=== PATIENT | male | born 1975 | race American Indian/Alaskan Native ===

== ENCOUNTER 2018-12-30 14:58 | Inpatient (IN) | payer OTHER, SELFPAY ==
[2018-12-30] MEDS ORDERED: SODIUM CHLORIDE 0.9% 1000 ML 2,000 ML ONE (15:05)
[2018-12-30] MEDS ORDERED: SODIUM CHLORIDE 0.9% 1000 ML 1,000 ML IV ONE ×3 (15:09→18:31)
[2018-12-30] MEDS ORDERED: ROCURONIUM 50 MG/5 ML INJ IV ONE (15:10)
[2018-12-30] MEDS ORDERED: ETOMIDATE 20 MG/10 ML INJ IV ONE (15:10)
--- NOTE | 2018-12-30 15:13 | Emergency Department Report ---
History of Present Illness - General Stated Complaint: OD/UNRESPONSIVE Time Seen by Provider: 12/30/18 15:00 Source: EMS Mode of arrival: Stretcher Limitations: Altered Mental Status, Physical Limitation - History of Present Illness Initial Comments: Patient is a 41-year-old male that presents emergency room for overdose. EMS states the patient has been unresponsive since the mother. EMS states that the patient had a seizure just prior to arrival he was given 2 of Versed. Prior to the seizure patient was given Narcan with no response. MD Complaint: intentional overdose, accidental overdose -: Sudden Intent: other Treatments Prior to Arrival: oxygen, narcan - Related Data Previous Rx's Medication Instructions Recorded Last Taken Type levETIRAcetam [Keppra TAB] 750 mg PO BID #60 tablet 01/03/19 Unknown Rx Allergies Allergy/AdvReac Type Severity Reaction Status Date / Time No Known Allergies Allergy Unverified 12/30/18 17:15 ED Review of Systems ROS: Stated complaint: OD/UNRESPONSIVE Other details as noted in HPI Comment: Unobtainable due to pts medical conditions ED Past Medical Hx - Past Medical History Previous Medical History?: No - Surgical History Past Surgical History?: No - Family History Family history: no significant - Social History Smoking Status: Unknown if ever smoked Substance Use Type: Cocaine - Medications Home Medications: Home Medications Medication Instructions Recorded Confirmed Last Taken Type levETIRAcetam [Keppra TAB] 750 mg PO BID #60 tablet 01/03/19 Unknown Rx ED Physical Exam - General Limitations: Altered Mental Status, Physical Limitation General appearance: obtunded - Head Head exam: Present: atraumatic, normocephalic - Eye Eye exam: Present: normal appearance, PERRL Pupils: Present: normal accommodation - ENT ENT exam: Present: mucous membranes moist - Neck Neck exam: Present: normal inspection - Respiratory Respiratory exam: Present: normal lung sounds bilaterally. Absent: respiratory distress, wheezes, rales - Cardiovascular Cardiovascular Exam: Present: regular rate, normal rhythm. Absent: systolic murmur, diastolic murmur, rubs, gallop - GI/Abdominal GI/Abdominal exam: Present: soft, normal bowel sounds - Rectal Rectal exam: Present: deferred - Extremities Exam Extremities exam: Present: normal inspection - Back Exam Back exam: Present: normal inspection - Neurological Exam Neurological exam: Present: altered - Expanded Neurological Exam Expanded Best Eye Response (Daniel): (1) no response Best Motor Response (Daniel): (1) no motor response Best Verbal Response (Daniel): (2) incomprehsible sounds [place] Total: 4 - Skin Skin exam: Present: warm, dry, intact, normal color. Absent: rash ED Course Vital Signs 12/30/18 12/30/18 12/30/18 15:11 15:16 15:28 Temperature Pulse Rate 93 H 92 H Respiratory 15 11 L Rate Blood Pressure 95/53 95/53 Blood Pressure [Right] O2 Sat by Pulse 95 94 97 Oximetry 12/30/18 12/30/18 12/30/18 15:30 15:46 16:00 Temperature 96.3 F L Pulse Rate 93 H 105 H 108 H Respiratory 18 18 17 Rate Blood Pressure 95/53 95/53 138/81 Blood Pressure 122/71 [Right] O2 Sat by Pulse 96 98 98 Oximetry 12/30/18 12/30/18 12/30/18 16:16 16:30 16:45 Temperature Pulse Rate 106 H 99 H 99 H Respiratory 20 21 21 Rate Blood Pressure 138/81 138/81 149/79 Blood Pressure [Right] O2 Sat by Pulse 98 98 90 Oximetry 12/30/18 12/30/18 12/30/18 17:00 17:15 17:30 Temperature Pulse Rate 94 H 93 H 89 Respiratory 31 H 20 27 H Rate Blood Pressure 128/81 128/71 133/68 Blood Pressure [Right] O2 Sat by Pulse 87 80 L 87 Oximetry 12/30/18 12/30/18 12/30/18 17:46 18:00 18:03 Temperature Pulse Rate 88 82 88 Respiratory 24 26 H Rate Blood Pressure 110/61 103/58 103/58 Blood Pressure [Right] O2 Sat by Pulse 97 98 Oximetry 12/30/18 12/30/18 12/30/18 18:16 18:30 18:45 Temperature Pulse Rate 91 H 92 H 84 Respiratory 36 H 20 23 Rate Blood Pressure 124/82 121/75 72/35 Blood Pressure [Right] O2 Sat by Pulse Oximetry 12/30/18 12/30/18 12/30/18 19:12 19:16 19:30 Temperature Pulse Rate 77 77 89 Respiratory 29 H 34 H Rate Blood Pressure 103/58 103/58 103/58 Blood Pressure [Right] O2 Sat by Pulse 94 88 92 Oximetry 12/30/18 12/30/18 12/30/18 19:45 20:00 20:15 Temperature Pulse Rate 77 84 76 Respiratory 24 28 H 22 Rate Blood Pressure 95/52 72/35 96/57 Blood Pressure [Right] O2 Sat by Pulse 96 98 96 Oximetry 12/30/18 12/30/18 12/30/18 20:30 20:46 21:30 Temperature Pulse Rate 78 89 96 H Respiratory 19 27 H 25 H Rate Blood Pressure 99/49 99/49 99/53 Blood Pressure [Right] O2 Sat by Pulse 99 98 98 Oximetry 12/30/18 12/30/18 12/30/18 21:45 22:00 22:15 Temperature Pulse Rate 87 80 86 Respiratory 31 H 29 H 24 Rate Blood Pressure 105/50 92/53 92/62 Blood Pressure [Right] O2 Sat by Pulse 96 96 95 Oximetry 12/30/18 12/30/18 12/30/18 22:30 22:45 23:00 Temperature Pulse Rate 77 82 86 Respiratory 24 24 26 H Rate Blood Pressure 92/62 95/53 97/61 Blood Pressure [Right] O2 Sat by Pulse 96 95 97 Oximetry 12/30/18 12/30/18 12/30/18 23:14 23:15 23:30 Temperature Pulse Rate 83 84 83 Respiratory 26 H 22 20 Rate Blood Pressure 97/61 109/63 92/57 Blood Pressure [Right] O2 Sat by Pulse 98 96 98 Oximetry 12/30/18 12/31/18 12/31/18 23:45 00:00 00:31 Temperature Pulse Rate 90 83 90 Respiratory 19 21 25 H Rate Blood Pressure 105/64 96/52 98/55 Blood Pressure [Right] O2 Sat by Pulse 96 96 97 Oximetry 12/31/18 12/31/18 12/31/18 00:45 01:00 01:01 Temperature Pulse Rate 87 89 89 Respiratory 23 24 Rate Blood Pressure 101/61 108/77 108/61 Blood Pressure [Right] O2 Sat by Pulse 95 95 Oximetry 12/31/18 12/31/18 12/31/18 01:15 01:30 01:45 Temperature Pulse Rate 87 81 78 Respiratory 23 22 21 Rate Blood Pressure 95/53 95/52 92/53 Blood Pressure [Right] O2 Sat by Pulse 94 92 Oximetry 12/31/18 12/31/18 12/31/18 02:00 02:15 02:30 Temperature Pulse Rate 78 79 77 Respiratory 19 19 20 Rate Blood Pressure 98/52 99/55 97/54 Blood Pressure [Right] O2 Sat by Pulse 93 93 94 Oximetry 12/31/18 12/31/18 12/31/18 02:45 03:00 03:15 Temperature Pulse Rate 73 76 74 Respiratory 21 21 16 Rate Blood Pressure 94/50 98/53 100/56 Blood Pressure [Right] O2 Sat by Pulse 95 Oximetry 12/31/18 12/31/18 12/31/18 03:30 03:45 04:00 Temperature Pulse Rate 77 74 75 Respiratory 19 20 18 Rate Blood Pressure 100/53 95/52 96/53 Blood Pressure [Right] O2 Sat by Pulse 95 Oximetry 12/31/18 12/31/18 12/31/18 04:15 04:21 04:30 Temperature Pulse Rate 73 73 70 Respiratory 18 21 Rate Blood Pressure 92/52 92/52 97/61 Blood Pressure [Right] O2 Sat by Pulse 96 98 Oximetry 12/31/18 12/31/18 12/31/18 04:45 05:00 05:15 Temperature Pulse Rate 71 76 78 Respiratory 19 20 14 Rate Blood Pressure 94/52 96/52 95/53 Blood Pressure [Right] O2 Sat by Pulse 97 97 Oximetry 12/31/18 12/31/18 12/31/18 05:30 05:45 06:00 Temperature Pulse Rate 68 73 74 Respiratory 17 19 20 Rate Blood Pressure 92/54 94/49 90/45 Blood Pressure [Right] O2 Sat by Pulse 96 Oximetry 12/31/18 12/31/18 12/31/18 06:15 06:45 07:00 Temperature Pulse Rate 71 72 70 Respiratory 19 21 17 Rate Blood Pressure 99/46 92/51 94/51 Blood Pressure [Right] O2 Sat by Pulse 95 96 Oximetry 12/31/18 12/31/18 12/31/18 07:10 07:15 07:28 Temperature 98.4 F Pulse Rate 72 69 73 Respiratory 20 16 Rate Blood Pressure 94/52 94/52 Blood Pressure 94/55 [Right] O2 Sat by Pulse 97 97 100 Oximetry 12/31/18 12/31/18 12/31/18 07:30 07:45 08:00 Temperature Pulse Rate 75 73 73 Respiratory 15 20 17 Rate Blood Pressure 105/62 96/53 94/52 Blood Pressure [Right] O2 Sat by Pulse 100 98 Oximetry 12/31/18 12/31/18 12/31/18 08:15 08:30 08:45 Temperature Pulse Rate 74 71 69 Respiratory 20 20 20 Rate Blood Pressure 94/55 90/49 92/48 Blood Pressure [Right] O2 Sat by Pulse 97 Oximetry 12/31/18 10:00 Temperature Pulse Rate 87 Respiratory 26 H Rate Blood Pressure Blood Pressure [Right] O2 Sat by Pulse 97 Oximetry - Reevaluation(s) Reevaluation #1: initial evaluation done. Patient's GCS is less than 8. we will intubate patient to protect his airway. See procedure note. 12/30/18 15:13 Reevaluation #2: Patient resting comfortably in bed and on ventilator. Nurse to place Renee 12/30/18 16:09 Reevaluation #3: Mother at bedside. And the mother states that the patient has multiple overdoses and has a long history of drug abuse. 12/30/18 17:19 - Consultations Consultation #1: Hospitalist consult for admission. Hospitalist admit patient. 12/30/18 18:39 - Intubation Time Out Performed: Yes Sedative: Etomidate Paralytic: Rocuronium Laryngoscope: fiberoptic video scope Size: 4 Assist Device Used: fiberoptic device ET Tube Size: 7.5 Tube Secured Depth (cm): 22 Tube Secured Location: teeth Tube Placement Confirmation: visualized tube passing t, equal breath sounds bilat, no breath sounds over epi, confirmation by capnometr Patient Tolerated Procedure: well, no complications Intubation Complications: none ED Medical Decision Making - Lab Data Result diagrams: 01/03/19 06:28 01/03/19 06:28 - EKG Data -: EKG Interpreted by Me EKG shows normal: sinus rhythm, axis, intervals, QRS complexes, ST-T waves Rate: normal - Radiology Data Radiology results: image reviewed interpreted by me: ET tube in good placement. No acute findings on chest x-ray.. CHEST 1 VIEW 12/30/2018 3:26 PM INDICATION / CLINICAL INFORMATION: od. ams. intubation. COMPARISON: None available. FINDINGS: SUPPORT DEVICES: ET tube has tip 8 cm above juan jose. HEART / MEDIASTINUM: No significant abnormality. LUNGS / PLEURA: Elevation of left hemidiaphragm with volume loss in left hemithorax. No focal infiltrate or pleural effusion. No pneumothorax. ADDITIONAL FINDINGS: No significant additional findings. IMPRESSION: 1. Volume loss of left lung with elevated left hemidiaphragm. No acute disease. CT BRAIN: 12/30/2018 INDICATION / CLINICAL INFORMATION: ams. COMPARISON: None available. FINDINGS: BRAIN/INTRACRANIAL STRUCTURES: Unenhanced CT images of the brain demonstrate no evidence of intracranial abnormality. Ventricles and sulci are normal in size and shape. There is no evidence of ischemic injury, hemorrhage, or mass. There are no abnormal extra-axial fluid collections. EXTRACRANIAL STRUCTURES: Unremarkable. Although only seen on the lateral quality engineering manager view of the skull, it appears that the nasogastric tube may be coiled in the nasal cavity and possibly in the posterior oropharynx. IMPRESSION: Negative unenhanced MRI of the brain. Possible coiling of nasogastric tube in nasopharynx and nasal cavity. - Medical Decision Making Patient is a 41-year-old male that presents emergency room with altered mental status and unresponsiveness. Patient was immediately intubated to protect his airway due to his lack of responsiveness. Patient found to have a metabolic acidosis. Patient has a long history of drug abuse and overdose. Patient's UDS is positive. Patient's head CT negative. Patient's labs essentially unremarkable except for his acidosis. - Differential Diagnosis unresponsiveness. Overdose. AMS. Critical Care Time: Yes Critical care time in (mins) excluding proc time.: 65 Critical care attestation.: If time is entered above; I have spent that time in minutes in the direct care of this critically ill patient, excluding procedure time. Critical Care Time: 65 minutes ED Disposition Clinical Impression: Seizure, Unresponsive episode, Metabolic acidosis Overdose Qualifiers: Encounter type: initial encounter Injury intent: undetermined intent Qualified Code(s): T50.904A - Poisoning by unspecified drugs, medicaments and biological substances, undetermined, initial encounter Altered mental state Qualifiers: Altered mental status type: unspecified Qualified Code(s): R41.82 - Altered mental status, unspecified Disposition: DC-09 OP ADMIT IP TO THIS HOSP Is pt being admited?: Yes Does the pt Need Aspirin: No Condition: Critical Time of Disposition: 18:42
[2018-12-30 15:39] LABS: Basophils # (Auto) 0.1 K/mm3 (0.0-0.1); Basophils % (Auto) 0.5 % (0.0-1.8); Eosinophils % (Auto) 0.1 % (0.0-4.3); Hematocrit 45.1 % (35.5-45.6); Hemoglobin 15.3 gm/dl (11.8-15.2); Lymphocytes # (Auto) 1.1 K/mm3 (1.2-5.4); Mean Corpuscular HGB Conc 34 % (32-34); Mean Corpuscular Volume 89 fl (84-94); Monocytes % (Auto) 8.1 % (0.0-7.3); Platelet Count 215 K/mm3 (140-440); Red Blood Count 5.07 M/mm3 (3.65-5.03); Red Cell Distribution Width 13.1 % (13.2-15.2)
--- NOTE | 2018-12-30 15:56 | XRay Report ---
CHEST 1 VIEW 12/30/2018 3:26 PM INDICATION / CLINICAL INFORMATION: od. ams. intubation. COMPARISON: None available. FINDINGS: SUPPORT DEVICES: ET tube has tip 8 cm above juan jose. HEART / MEDIASTINUM: No significant abnormality. LUNGS / PLEURA: Elevation of left hemidiaphragm with volume loss in left hemithorax. No focal infiltr ate or pleural effusion. No pneumothorax. ADDITIONAL FINDINGS: No significant additional findings. IMPRESSION: 1. Volume loss of left lung with elevated left hemidiaphragm. No acute disease. Signer Name: Paul Trent MD Signed: 12/30/2018 3:51 PM Workstation Name: [id number]
[2018-12-30] MEDS ORDERED: LORazepam 100 MG in SODIUM CHLORIDE 0.9% 50 ML, EMPTY BAG 0 ML IV SCH (16:00)
[2018-12-30] MEDS ORDERED: CEFEPIME/NS 2 GM/100 ML 2 GM/100 ML BAG IV ONE (16:44)
[2018-12-30 16:45] LABS: Bacteria,Urine 2+ /HPF (Negative); Bilirubin,Urine NEG (Negative); Blood,Urine LG (Negative); Color,Urine Yellow (Yellow); Hyaline Casts,Urine 3 /LPF; Mucus,Urine FEW /HPF; Urobilinogen,Urine < 2.0 mg/dL (<2.0)
[2018-12-30 16:52] LABS: Amphetamine Screen,Urine PRESUMPTIVE NEGATIVE; Cannabinoid Screen,Urine PRESUMPTIVE NEGATIVE; Cocaine Screen,Urine PRESUMPTIVE NEGATIVE; Methadone Screen,Urine PRESUMPTIVE NEGATIVE; Opiate Screen,Urine PRESUMPTIVE NEGATIVE
[2018-12-30 17:11] LABS: Benzodiazepines Screen,Urine PRESUMPTIVE POSITIVE
[2018-12-30 17:44] LABS: Alanine Aminotransferase 92 units/L (7-56); Albumin 4.3 g/dL (3.9-5); BUN/Creatinine Ratio 12; Blood Urea Nitrogen 16 mg/dL (9-20); Calcium 8.2 mg/dL (8.4-10.2); Hemolysis Index 48
[2018-12-30] MEDS ORDERED: levETIRAcetam 1000 MG/NS 0.75% 1,000 MG/100 ML BAG IV ONE (18:30)
[2018-12-30] MEDS ORDERED: PROPOFOL 200 MG/20 ML VIAL IV ONE ×2 (18:33→18:37)
[2018-12-30] MEDS: PROPOFOL 1,000 MG/100 ML BOTTLE IV SCH ×2 (18:42→23:30)
--- NOTE | 2018-12-30 19:47 | Cat Scan Report ---
CT BRAIN: 12/30/2018 INDICATION / CLINICAL INFORMATION: ams. COMPARISON: None available. FINDINGS: BRAIN/INTRACRANIAL STRUCTURES: Unenhanced CT images of the brain demonstrate no evidence of intracran ial abnormality. Ventricles and sulci are normal in size and shape. There is no evidence of ischemic injury, hemorrhage, or mass. There are no abnormal extra-axial fluid collections. EXTRACRANIAL STRUCTURES: Unremarkable. Although only seen on the lateral harvest crew supervisor view of the skull, it appears that the nasogastric tube may be coiled in the nasal cavity and possibly in the posterior oropharynx. IMPRESSION: Negative unenhanced MRI of the brain. Possible coiling of nasogastric tube in nasopharynx and nasal cavity. All CT scans at this location are performed using dose reduction to ALARA by means of automated expos ure control. Signer Name: Michele Daley MD Signed: 12/30/2018 7:42 PM Workstation Name: [id number]
--- NOTE | 2018-12-30 19:53 | History and Physical Report ---
History of Present Illness Date of examination: 12/30/18 Date of admission: 12/30/2018 Chief complaint: Decreased responsiveness-unknown time History of present illness: 41-year-old male with no significant past medical history except for PCP dependence and benzo dependence was found unresponsive by his mother in the morning. Mother cannot tell how long he has passed out. Last well-known time was last night. Mother called EMS and [facility] patient had a tonic-clonic seizure just before arrival in the emergency room and was given 2 milligrams of Versed. Patient's UDS positive for PCP and benzos. No fever. Patient was intubated in the emergency room. Head CT was negative Past Medical History Previous Medical History?: No Surgical History Past Surgical History?: No Family History Family history: no significant PCP and benzo dependence Social History PCP and benzo dependence Review of Systems ROS: Stated complaint: OD/UNRESPONSIVE Other details as noted in HPI Comment: Unobtainable due to pts medical conditions Past History Past Medical History: No medical history Past Surgical History: No surgical history Social history: lives with family, other (PCP abuse and benzo abuse) Family history: no significant family history Medications and Allergies Allergies Allergy/AdvReac Type Severity Reaction Status Date / Time No Known Allergies Allergy Unverified 12/30/18 17:15 Active Meds: Active Medications Lorazepam 100 mg/ Sodium Chloride/ Miscellaneous Information 100 mls @ 1 mls/hr IV TITR ERIN; Protocol Last Titration: 12/30/18 17:52 Dose: 5 mg/hr, 5 mls/hr Documented by: Propofol (Diprivan 10 Mg/Ml) 1,000 mg in 100 mls @ 2.245 mls/hr IV TITR ERIN; Protocol Last Titration: 12/30/18 19:34 Dose: 10 mcg/kg/min, 4.491 mls/hr Documented by: Exam - Constitutional Vitals: Temp Pulse Resp BP Pulse Ox 96.3 F L 77 29 H 103/58 88 12/30/18 15:30 12/30/18 19:16 12/30/18 19:16 12/30/18 19:16 12/30/18 19:16 General appearance: Present: no acute distress, well-nourished - EENT Eyes: Present: PERRL ENT: hearing intact, clear oral mucosa - Neck Neck: Present: supple, normal ROM - Respiratory Respiratory effort: normal Respiratory: bilateral: CTA - Cardiovascular Heart rate: 91 Rhythm: regular Heart Sounds: Present: S1 & S2. Absent: rub, click - Extremities Extremities: no ischemia, pulses intact, pulses symmetrical, No edema Peripheral Pulses: within normal limits - Abdominal General gastrointestinal: Present: soft, non-tender, non-distended, normal bowel sounds Male genitourinary: Present: normal - Rectal Rectal Exam: deferred - Integumentary Integumentary: Present: clear, warm, dry - Musculoskeletal Musculoskeletal: generalized weakness - Psychiatric Psychiatric: other - Neurologic Neurologic: other (unresponsive, intubated on full ventilator support) - Allied Health Allied health notes reviewed: nursing, case management Results - Labs CBC & Chem 7: 12/30/18 15:30 12/30/18 17:00 Labs: Laboratory Last Values WBC 12.4 K/mm3 (4.5-11.0) H 12/30/18 15:30 RBC 5.07 M/mm3 (3.65-5.03) H 12/30/18 15:30 Hgb 15.3 gm/dl (11.8-15.2) H 12/30/18 15:30 Hct 45.1 % (35.5-45.6) 12/30/18 15:30 MCV 89 fl (84-94) 12/30/18 15:30 MCH 30 pg (28-32) 12/30/18 15:30 MCHC 34 % (32-34) 12/30/18 15:30 RDW 13.1 % (13.2-15.2) L 12/30/18 15:30 Plt Count 215 K/mm3 (140-440) 12/30/18 15:30 Lymph % (Auto) 9.0 % (13.4-35.0) L 12/30/18 15:30 [place] % (Auto) 8.1 % (0.0-7.3) H 12/30/18 15:30 Eos % (Auto) 0.1 % (0.0-4.3) 12/30/18 15:30 Baso % (Auto) 0.5 % (0.0-1.8) 12/30/18 15:30 Lymph # 1.1 K/mm3 (1.2-5.4) L 12/30/18 15:30 [place] # 1.0 K/mm3 (0.0-0.8) H 12/30/18 15:30 Eos # 0.0 K/mm3 (0.0-0.4) 12/30/18 15:30 Baso # 0.1 K/mm3 (0.0-0.1) 12/30/18 15:30 Seg Neutrophils % 82.3 % (40.0-70.0) H 12/30/18 15:30 Seg Neutrophils # 10.2 K/mm3 (1.8-7.7) H 12/30/18 15:30 POC ABG pH 7.265 (7.35-7.45) L 12/30/18 18:03 POC ABG pCO2 45.0 (35-45) 12/30/18 18:03 POC ABG pO2 212 (80-105) H 12/30/18 18:03 POC ABG HCO3 20.4 (22-26 mml/L) 12/30/18 18:03 POC ABG Total CO2 22 (23-27mmol/L) 12/30/18 18:03 POC ABG O2 Sat 100 12/30/18 18:03 POC ABG Base Excess -7 ((-2) - (+3)mmol/L) 12/30/18 18:03 FiO2 100 % 12/30/18 18:03 Sodium 144 mmol/L (137-145) 12/30/18 17:00 Potassium 4.0 mmol/L (3.6-5.0) 12/30/18 17:00 Chloride 110.0 mmol/L (98-107) H 12/30/18 17:00 Carbon Dioxide 17 mmol/L (22-30) L 12/30/18 17:00 Anion Gap 21 mmol/L 12/30/18 17:00 BUN 16 mg/dL (9-20) 12/30/18 17:00 Creatinine 1.3 mg/dL (0.8-1.5) 12/30/18 17:00 Estimated GFR > 60 ml/min 12/30/18 17:00 BUN/Creatinine Ratio 12 % 12/30/18 17:00 Glucose 111 mg/dL (75-100) H 12/30/18 17:00 Lactic Acid 0.70 mmol/L (0.7-2.0) 12/30/18 17:00 Calcium 8.2 mg/dL (8.4-10.2) L 12/30/18 17:00 Total Bilirubin 0.70 mg/dL (0.1-1.2) 12/30/18 17:00 AST 367 units/L (5-40) H 12/30/18 17:00 ALT 92 units/L (7-56) H 12/30/18 17:00 Alkaline Phosphatase 55 units/L (35-129) 12/30/18 17:00 Total Protein 6.7 g/dL (6.3-8.2) 12/30/18 17:00 Albumin 4.3 g/dL (3.9-5) 12/30/18 17:00 Albumin/Globulin Ratio 1.8 % 12/30/18 17:00 Urine Color Yellow (Yellow) 12/30/18 16:30 Urine Turbidity Slightly-cloudy (Clear) 12/30/18 16:30 Urine pH 5.0 (5.0-7.0) 12/30/18 16:30 Ur Specific [place] 1.017 (1.003-1.030) 12/30/18 16:30 Urine Protein 100 mg/dl mg/dL (Negative) 12/30/18 16:30 Urine Glucose (UA) Neg mg/dL (Negative) 12/30/18 16:30 Urine Ketones Tr mg/dL (Negative) 12/30/18 16:30 Urine Blood Lg (Negative) 12/30/18 16:30 Urine Nitrite Neg (Negative) 12/30/18 16:30 Urine Bilirubin Neg (Negative) 12/30/18 16:30 Urine Urobilinogen < 2.0 mg/dL (<2.0) 12/30/18 16:30 Ur Leukocyte Esterase Neg (Negative) 12/30/18 16:30 Urine WBC (Auto) 4.0 /HPF (0.0-6.0) 12/30/18 16:30 Urine RBC (Auto) 1.0 /HPF (0.0-6.0) 12/30/18 16:30 U Epithel Cells (Auto) 1.0 /HPF (0-13.0) 12/30/18 16:30 Urine Bacteria (Auto) 2+ /HPF (Negative) 12/30/18 16:30 Hyaline Casts 3 /LPF 12/30/18 16:30 Urine Mucus Few /HPF 12/30/18 16:30 Urine Opiates Screen Presumptive negative 12/30/18 16:30 Urine Methadone Screen Presumptive negative 12/30/18 16:30 Ur Barbiturates Screen Presumptive negative 12/30/18 16:30 Ur Phencyclidine Scrn Presumptive positive 12/30/18 16:30 Ur Amphetamines Screen Presumptive negative 12/30/18 16:30 U Benzodiazepines Scrn Presumptive positive 12/30/18 16:30 Urine Cocaine Screen Presumptive negative 12/30/18 16:30 U Marijuana (THC) Screen Presumptive negative 12/30/18 16:30 Drugs of Abuse Note Disclamer 12/30/18 16:30 Plasma/Serum Alcohol < 0.01 % (0-0.07) 12/30/18 18:34 Short CBC 12/30/18 Range/Units 15:30 WBC 12.4 H (4.5-11.0) K/mm3 Hgb 15.3 H (11.8-15.2) gm/dl Hct 45.1 (35.5-45.6) % Plt Count 215 (140-440) K/mm3 BMP 12/30/18 17:00 Sodium 144 Potassium 4.0 Chloride 110.0 H Carbon Dioxide 17 L BUN 16 Creatinine 1.3 Glucose 111 H Calcium 8.2 L Liver Function 12/30/18 Range/Units 17:00 Total Bilirubin 0.70 (0.1-1.2) mg/dL AST 367 H (5-40) units/L ALT 92 H (7-56) units/L Alkaline Phosphatase 55 (35-129) units/L Albumin 4.3 (3.9-5) g/dL Urine 12/30/18 Range/Units 16:30 Urine Color Yellow (Yellow) Urine pH 5.0 (5.0-7.0) Ur Specific [place] 1.017 (1.003-1.030) Urine Protein 100 mg/dl (Negative) mg/dL Urine Glucose (UA) Neg (Negative) mg/dL - Imaging and Cardiology EKG: report reviewed Chest x-ray: report reviewed CT Scan - head: report reviewed (no acute findings) Imaging and Cardiology: Chest x-ray IMPRESSION: 1. Volume loss of left lung with elevated left hemidiaphragm. No acute disease. Assessment and Plan Assessment and plan: Critical care time--40 minutes Advance Directives: Yes (full code) VTE prophylaxis?: Chemical Plan of care discussed with patient/family: Yes - Patient Problems (1) Acute encephalopathy Status: Acute Plan to address problem: Secondary to PCP and benzos Pupils reactive Ventilatory support IV fluids CIWA protocol for agitation and withdrawal symptoms (2) PCP dependence Status: Acute Plan to address problem: Supportive care CIWA protocol IV fluids (3) Metabolic acidosis Status: Acute Plan to address problem: IV normal saline for now (4) Seizure Status: Acute Plan to address problem: New-onset seizures Patient initiated on IV Keppra Patient may need oral Keppra for discharge Patient to be bridged to oral Keppra once extubated (5) Transaminitis Status: Acute Plan to address problem: Acute hepatitis profile ordered Trend liver function tests IV fluids (6) DVT prophylaxis Status: Acute Plan to address problem: On Lovenox and GI prophylaxis
[2018-12-30] MEDS ORDERED: SODIUM BICARBONATE 325 MG TAB FEEDTUBE PRN (20:05)
[2018-12-30] MEDS ORDERED: ONDANSETRON 4 MG/2 ML INJ IV PRN (20:05)
[2018-12-30] MEDS ORDERED: SIMPLE SYRUP 15 ML FEEDTUBE PRN ×2 (20:05)
[2018-12-30] MEDS ORDERED: METOCLOPRAMIDE 10 MG/2 ML INJ IV PRN (20:05)
[2018-12-30] MEDS ORDERED: DEXTROSE 50% IN WATER (25GM) 50 ML SYRINGE IV PRN (20:05)
[2018-12-30] MEDS ORDERED: LIPASE 10,500/PROTEASE 25,000/AMYLASE 43,750 (UNITS) DR CAP FEEDTUBE PRN (20:05)
[2018-12-30] MEDS ORDERED: HYDROmorphone 1 MG/1 ML INJ IV PRN (20:05)
[2018-12-30] MEDS ORDERED: ALBUTEROL 2.5 MG/3 ML NEBU IH PRN (20:11)
[2018-12-30] MEDS ORDERED: LORazepam 2 MG/ML VIAL IV PRN ×2 (20:38)
[2018-12-30 21:15] LABS: Calcium 7.7 mg/dL (8.4-10.2)
[2018-12-30 21:20] LABS: Hepatitis B Surface Antigen Non-Reactive (Negative); Hepatitis C Virus Antibody Non-Reactive (NonReactive)
[2018-12-30] MEDS ORDERED: PROPOFOL 1,000 MG/100 ML BOTTLE IV ONE (23:26)
[2018-12-30] MEDS ORDERED: ENOXAPARIN 40 MG/0.4 ML INJ SUB-Q ONE (23:35)
[2018-12-30] MEDS ORDERED: cefTRIAXone/NS 2 GM/100 ML 2 GM/100 ML BAG IV ONE (23:35)
[2018-12-30] MEDS ORDERED: FAMOTIDINE 20 MG/2 ML INJ IV ONE (23:35)
[2018-12-30] MEDS: FAMOTIDINE 20 MG/2 ML INJ IV SCH (23:39)
[2018-12-30] MEDS: ENOXAPARIN 40 MG/0.4 ML INJ SUB-Q SCH (23:40)
[2018-12-30] MEDS: cefTRIAXone/NS 2 GM/100 ML 2 GM/100 ML BAG IV SCH (23:40)
[2018-12-31] MEDS ORDERED: fentaNYL 100 MCG/2 ML INJ IV PRN (00:38)
[2018-12-31] MEDS ORDERED: MINERAL OIL/PETROLATUM, WHITE OPHTH OINT 3.5 GM OU PRN (00:38)
[2018-12-31] MEDS ORDERED: LIP THERAPY VASELINE TP PRN (00:38)
[2018-12-31] MEDS ORDERED: fentaNYL DRIP Premix 2,000 MCG/100 ML BAG IV SCH (01:00)
--- NOTE | 2018-12-31 05:53 | XRay Report ---
CHEST 1 VIEW INDICATION / CLINICAL INFORMATION: Verify OG tube placement. COMPARISON: 12/30/2018 FINDINGS: SUPPORT DEVICES: ET tube is present and stable in position. There has been interval placement of NG t ube. The tip is in the mid to distal portion of the stomach.. HEART / MEDIASTINUM: No significant abnormality. LUNGS / PLEURA: There is prominent left lower lobe pleural-parenchymal disease. Right lung is well ex panded and clear. No interstitial pulmonary edema. No pneumothorax. ADDITIONAL FINDINGS: No significant additional findings. IMPRESSION: 1. ET tube and NG tube appear to be in satisfactory position. 2. Prominent left lower lobe pleural-parenchymal disease. Signer Name: Yelitza Rodriguez MD Signed: 12/31/2018 5:49 AM Workstation Name: [email or web address]
[2018-12-31 06:24] LABS: ABG Base Excess -8.3 mmol/L (-2.0-3.0); ABG HCO3 17.4 mmol/L (20.0-26.0); ABG Methemoglobin 0.4 % (0.0-1.5); ABG Oxygen Saturation 96.8 % (95.0-99.0); ABG PCO2 36.5 mm Hg; ABG PH 7.296 pH Units (7.350-7.450); ABG PO2 89.8 mm Hg (80.0-90.0)
[2018-12-31] MEDS ORDERED: PROPOFOL 1,000 MG/100 ML BOTTLE IV ONE (07:18)
--- NOTE | 2018-12-31 07:48 | Progress Note ---
Assessment and Plan Assessment and plan: Patient is a 41 yo man without known chronic medical problems except for PCP and Benzo dependence who presents to [facility] with AMS. He was found unresponsive by Mother. Mother cannot tell how long he was passed out. Last well-known time was last night. Mother called EMS and per EMS patient had a tonic-clonic seizure just before arrival in the emergency room and was given 2 milligrams of Versed. Patient's UDS positive for PCP and benzos. Patient was intubated in the emergency room. * pCXR Impression: Volume loss of left lung with elevated left hemidiaphragm, no acute disease, ET tube has tip 8 cm above juan jose * CT head without contrast Impression: Negative (1) Acute toxic metabolic encephalopathy Status: Acute Plan to address problem: Secondary to PCP and benzos Pupils reactive Ventilatory support IV fluids CIWA protocol for agitation and withdrawal symptoms (2) PCP dependence Status: Acute Plan to address problem: Supportive care CIWA protocol IV fluids (3) Metabolic acidosis Status: Acute Plan to address problem: IV normal saline for now (4) Seizure Status: Acute Plan to address problem: New-onset seizures Patient initiated on IV Keppra Patient may need oral Keppra for discharge Patient to be bridged to oral Keppra once extubated (5) Transaminitis Status: Acute Plan to address problem: Acute hepatitis profile ordered Trend liver function tests IV fluids (6) DVT prophylaxis Status: Acute Plan to address problem: On Lovenox and GI prophylaxis History Interval history: Patient was seen and examined. Follow-up on current diagnosis of Respiratory failure. No overnight events reported to me. Patient intubated. Imaging, nursing note, chart, labs and old chart reviewed. I spoke with mother and his Uncle Jostin at bedside. Hospitalist Physical - Physical exam Narrative exam: Gen: WDWN, critically ill on life support/MV HEENT: NCAT, EOMI, Pupils pinpoint, OP Clear Neck: supple, no adenopathy, no thyromegaly, no JVD CVS/Heart: RRR, normal S1S2, pulses present bilaterally Chest/Lungs: CTA B, Symmetrical chest expansion, good air entry bilaterally GI/Abdomen: soft, NTND, good bowel sounds, no guarding or rebound /Bladder: no suprapubic tenderness, no CVA or paraspinal tenderness Extermity/Skin: no c/c/e, MSK: sedated Neuro: sedated Psych: sedated - Constitutional Vitals: Temp Pulse Resp BP Pulse Ox 96.3 F L 72 21 92/51 96 12/30/18 15:30 12/31/18 06:45 12/31/18 06:45 12/31/18 06:45 12/31/18 06:45 General appearance: Present: no acute distress, well-nourished Results - Labs CBC & Chem 7: 12/30/18 15:30 12/30/18 17:00 Labs: Laboratory Last Values WBC 12.4 K/mm3 (4.5-11.0) H 12/30/18 15:30 RBC 5.07 M/mm3 (3.65-5.03) H 12/30/18 15:30 Hgb 15.3 gm/dl (11.8-15.2) H 12/30/18 15:30 Hct 45.1 % (35.5-45.6) 12/30/18 15:30 MCV 89 fl (84-94) 12/30/18 15:30 MCH 30 pg (28-32) 12/30/18 15:30 MCHC 34 % (32-34) 12/30/18 15:30 RDW 13.1 % (13.2-15.2) L 12/30/18 15:30 Plt Count 215 K/mm3 (140-440) 12/30/18 15:30 Lymph % (Auto) 9.0 % (13.4-35.0) L 12/30/18 15:30 [place] % (Auto) 8.1 % (0.0-7.3) H 12/30/18 15:30 Eos % (Auto) 0.1 % (0.0-4.3) 12/30/18 15:30 Baso % (Auto) 0.5 % (0.0-1.8) 12/30/18 15:30 Lymph # 1.1 K/mm3 (1.2-5.4) L 12/30/18 15:30 [place] # 1.0 K/mm3 (0.0-0.8) H 12/30/18 15:30 Eos # 0.0 K/mm3 (0.0-0.4) 12/30/18 15:30 Baso # 0.1 K/mm3 (0.0-0.1) 12/30/18 15:30 Seg Neutrophils % 82.3 % (40.0-70.0) H 12/30/18 15:30 Seg Neutrophils # 10.2 K/mm3 (1.8-7.7) H 12/30/18 15:30 POC ABG pH 7.300 (7.35-7.45) L 12/30/18 22:12 ABG pH 7.296 pH Units (7.350-7.450) L 12/31/18 04:40 POC ABG pCO2 36.6 (35-45) 12/30/18 22:12 ABG pCO2 36.5 mm Hg 12/31/18 04:40 POC ABG pO2 126 (80-105) H 12/30/18 22:12 ABG pO2 89.8 mm Hg (80.0-90.0) 12/31/18 04:40 POC ABG HCO3 18.0 (22-26 mml/L) 12/30/18 22:12 ABG HCO3 17.4 mmol/L (20.0-26.0) L 12/31/18 04:40 POC ABG Total CO2 19 (23-27mmol/L) 12/30/18 22:12 POC ABG O2 Sat 98 12/30/18 22:12 ABG O2 Saturation 96.8 % (95.0-99.0) 12/31/18 04:40 ABG O2 Content 18.2 (0.0-44) 12/31/18 04:40 POC ABG Base Excess -8 ((-2) - (+3)mmol/L) 12/30/18 22:12 ABG Base Excess -8.3 mmol/L (-2.0-3.0) L 12/31/18 04:40 ABG Hemoglobin 13.6 gm/dl (14.0-18.0) L 12/31/18 04:40 ABG Carboxyhemoglobin 1.4 % (0.0-5.0) 12/31/18 04:40 ABG Methemoglobin 0.4 % (0.0-1.5) 12/31/18 04:40 Oxyhemoglobin 95.1 % (95.0-99.0) 12/31/18 04:40 FiO2 25 % 12/31/18 04:40 Sodium 144 mmol/L (137-145) 12/30/18 17:00 Potassium 4.0 mmol/L (3.6-5.0) 12/30/18 17:00 Chloride 110.0 mmol/L (98-107) H 12/30/18 17:00 Carbon Dioxide 17 mmol/L (22-30) L 12/30/18 17:00 Anion Gap 21 mmol/L 12/30/18 17:00 BUN 16 mg/dL (9-20) 12/30/18 17:00 Creatinine 1.3 mg/dL (0.8-1.5) 12/30/18 17:00 Estimated GFR > 60 ml/min 12/30/18 17:00 BUN/Creatinine Ratio 12 % 12/30/18 17:00 Glucose 111 mg/dL (75-100) H 12/30/18 17:00 Lactic Acid 0.70 mmol/L (0.7-2.0) 12/30/18 17:00 Calcium 7.7 mg/dL (8.4-10.2) L 12/30/18 20:44 Phosphorus 4.70 mg/dL (2.5-4.5) H 12/30/18 20:44 Magnesium 2.30 mg/dL (1.7-2.3) 12/30/18 20:44 Total Bilirubin 0.70 mg/dL (0.1-1.2) 12/30/18 17:00 AST 367 units/L (5-40) H 12/30/18 17:00 ALT 92 units/L (7-56) H 12/30/18 17:00 Alkaline Phosphatase 55 units/L (35-129) 12/30/18 17:00 Ammonia 55.0 umol/L (25-60) 12/30/18 20:44 Total Protein 6.7 g/dL (6.3-8.2) 12/30/18 17:00 Albumin 4.3 g/dL (3.9-5) 12/30/18 17:00 Albumin/Globulin Ratio 1.8 % 12/30/18 17:00 Urine Color Yellow (Yellow) 12/30/18 16:30 Urine Turbidity Slightly-cloudy (Clear) 12/30/18 16:30 Urine pH 5.0 (5.0-7.0) 12/30/18 16:30 Ur Specific [place] 1.017 (1.003-1.030) 12/30/18 16:30 Urine Protein 100 mg/dl mg/dL (Negative) 12/30/18 16:30 Urine Glucose (UA) Neg mg/dL (Negative) 12/30/18 16:30 Urine Ketones Tr mg/dL (Negative) 12/30/18 16:30 Urine Blood Lg (Negative) 12/30/18 16:30 Urine Nitrite Neg (Negative) 12/30/18 16:30 Urine Bilirubin Neg (Negative) 12/30/18 16:30 Urine Urobilinogen < 2.0 mg/dL (<2.0) 12/30/18 16:30 Ur Leukocyte Esterase Neg (Negative) 12/30/18 16:30 Urine WBC (Auto) 4.0 /HPF (0.0-6.0) 12/30/18 16:30 Urine RBC (Auto) 1.0 /HPF (0.0-6.0) 12/30/18 16:30 U Epithel Cells (Auto) 1.0 /HPF (0-13.0) 12/30/18 16:30 Urine Bacteria (Auto) 2+ /HPF (Negative) 12/30/18 16:30 Hyaline Casts 3 /LPF 12/30/18 16:30 Urine Mucus Few /HPF 12/30/18 16:30 Urine Opiates Screen Presumptive negative 12/30/18 16:30 Urine Methadone Screen Presumptive negative 12/30/18 16:30 Ur Barbiturates Screen Presumptive negative 12/30/18 16:30 Ur Phencyclidine Scrn Presumptive positive 12/30/18 16:30 Ur Amphetamines Screen Presumptive negative 12/30/18 16:30 U Benzodiazepines Scrn Presumptive positive 12/30/18 16:30 Urine Cocaine Screen Presumptive negative 12/30/18 16:30 U Marijuana (THC) Screen Presumptive negative 12/30/18 16:30 Drugs of Abuse Note Disclamer 12/30/18 16:30 Plasma/Serum Alcohol < 0.01 % (0-0.07) 12/30/18 18:34 Hepatitis A IgM Ab Non-reactive (NonReactive) 12/30/18 20:44 Hep Bs Antigen Non-reactive (Negative) 12/30/18 20:44 Hep B Core IgM Ab Non-reactive (NonReactive) 12/30/18 20:44 Hepatitis C Antibody Non-reactive (NonReactive) 12/30/18 20:44 Active Medications - Current Medications Current Medications: Generic Name Dose Route Start Last Admin Trade Name Freq PRN Reason Stop Dose Admin Albuterol 2.5 mg 12/30/18 20:11 Proventil IH Q4HRT PRN Shortness Of Breath Lipase/Protease/Amylase 1 each 12/30/18 20:05 Pancreaze 10,500 Unit FEEDTUBE PRN PRN For Clogged Feeding Tube Dextrose 50 ml 12/30/18 20:05 D50w (25gm) Syringe IV Q30MIN PRN Hypoglycemia Protocol Enoxaparin Sodium 40 mg 12/30/18 21:00 12/30/18 23:40 Enoxaparin SUB-Q 40 mg QDAY@2200 ERIN Administration Famotidine 20 mg 12/30/18 22:00 12/30/18 23:39 Pepcid IV 20 mg BID ERIN Administration Fentanyl 50 mcg 12/31/18 00:38 Sublimaze IV Q10MIN PRN ANALGESIA Hydromorphone HCl 0.5 mg 12/30/18 20:05 Dilaudid IV Q3H PRN Pain , Severe (7-10) Hydrophilic Ointment 1 applic 12/31/18 00:38 Vaseline Lip Therapy TP Q2HR PRN Dry Lips Lorazepam 100 mg/ Sodium 100 mls @ 1 mls/hr 12/30/18 16:00 12/30/18 17:52 Chloride/ Miscellaneous IV 5 mg/hr Information TITR ERIN 5 mls/hr Titration Protocol 1 MG/HR Propofol 1,000 mg in 100 mls @ 2.245 mls/hr 12/30/18 19:00 12/31/18 07:18 Diprivan 10 Mg/Ml IV 30 mcg/kg/min TITR ERIN 13.472 mls/hr Titration Protocol 5 MCG/KG/MIN Dextrose/Sodium Chloride 1,000 mls @ 100 mls/hr 12/30/18 21:00 D5ns IV DIRECT ERIN Levetiracetam 750 mg/ Dextrose 107.5 mls @ 400 mls/hr 12/31/18 06:00 IV Q12H ERIN Ceftriaxone Sodium 2 gm in 100 mls @ 200 mls/hr 12/30/18 21:00 12/30/18 23:40 Rocephin/Ns 2 Gm/100 Ml IV 200 mls/hr Q24HR@2200 ERIN Administration Protocol Fentanyl Citrate 2,000 mcg in 100 mls @ 3.742 mls/hr 12/31/18 01:00 12/31/18 00:55 Fentanyl Drip Premix IV 1 mcg/kg/hr TITR ERIN 3.742 mls/hr Administration Protocol 1 MCG/KG/HR Lorazepam 2 mg 12/30/18 20:38 Ativan IV Q1H PRN CIWA-Ar 8-15 Lorazepam 4 mg 12/30/18 20:38 Ativan IV Q15MIN PRN CIWA-Ar >25 Metoclopramide HCl 10 mg 12/30/18 20:05 Reglan IV Q6H PRN Nausea And Vomiting Multi-Ingred Cream/Lotion/Oil/Oint 1 applic 12/31/18 00:38 Artificial Tears Ophth Oint OU Q4HR PRN Dry Eye(s) Ondansetron HCl 4 mg 12/30/18 20:05 Zofran IV Q3H PRN Nausea And Vomiting Simple Syrup 15 ml 12/30/18 20:05 Simple Syrup FEEDTUBE PRN PRN Hypoglycemia Simple Syrup 30 ml 12/30/18 20:05 Simple Syrup FEEDTUBE PRN PRN Hypoglycemia Sodium Bicarbonate 325 mg 12/30/18 20:05 Sodium Bicarbonate FEEDTUBE PRN PRN For Clogged Feeding Tube Sodium Chloride 10 ml 12/30/18 22:00 12/30/18 23:39 Sodium Chloride Flush Syringe 10 Ml IV 10 ml BID ERIN Administration Sodium Chloride 10 ml 12/30/18 20:05 Sodium Chloride Flush Syringe 10 Ml IV PRN PRN LINE FLUSH
[2018-12-31] MEDS ORDERED: D5W/0.9% NACL 1,000 ML IV ONE (08:06)
[2018-12-31] MEDS: D5W/0.9% NACL 1,000 ML IV SCH ×2 (08:08→18:35)
[2018-12-31] MEDS: levETIRAcetam 750 MG in DEXTROSE 5% IN WATER 100 ML IV SCH ×2 (08:24→18:35)
[2018-12-31] MEDS: FAMOTIDINE 20 MG/2 ML INJ IV SCH ×2 (11:44→22:00)
--- NOTE | 2018-12-31 15:45 | XRay Report ---
ABDOMEN 1 VIEW(S) INDICATION / CLINICAL INFORMATION: Abdominal pain. COMPARISON: None available. FINDINGS: TUBES / LINES: NG tube terminates within the mid stomach. BOWEL GAS PATTERN: No significant abnormality. FREE AIR / EXTRALUMINAL GAS: None seen. ADDITIONAL FINDINGS: No significant additional findings. IMPRESSION: 1. No significant abnormality. Signer Name: Fly Mota MD Signed: 12/31/2018 3:41 PM Workstation Name: [email or web address] Appointment [email or web address]
--- NOTE | 2018-12-31 16:00 | Consultation ---
History of Present Illness Consult date: 12/31/18 Requesting physician: SAMUEL MARIEE Past History Past Medical History: No medical history Past Surgical History: No surgical history Social history: lives with family, other (PCP abuse and benzo abuse) Family history: no significant family history Medications and Allergies Allergies Allergy/AdvReac Type Severity Reaction Status Date / Time No Known Allergies Allergy Unverified 12/30/18 17:15 Home Medications Medication Instructions Recorded Confirmed Last Taken Type No Known Home Medications [No 12/31/18 12/31/18 Unknown History Reported Home Medications] Active Meds: Active Medications Albuterol (Proventil) 2.5 mg IH Q4HRT PRN PRN Reason: Shortness Of Breath Lipase/Protease/Amylase (Pancreazriky Dr 10,500 Unit) 1 each FEEDTUBE PRN PRN PRN Reason: For Clogged Feeding Tube Dextrose (D50w (25gm) Syringe) 50 ml IV Q30MIN PRN; Protocol PRN Reason: Hypoglycemia Enoxaparin Sodium (Enoxaparin) 40 mg SUB-Q QDAY@2200 [facility] Last Admin: 12/30/18 23:40 Dose: 40 mg Documented by: Famotidine (Pepcid) 20 mg IV BID [facility] Last Admin: 12/31/18 11:44 Dose: 20 mg Documented by: Fentanyl (Sublimaze) 50 mcg IV Q10MIN PRN PRN Reason: ANALGESIA Hydromorphone HCl (Dilaudid) 0.5 mg IV Q3H PRN PRN Reason: Pain , Severe (7-10) Hydrophilic Ointment (Vaseline Lip Therapy) 1 applic TP Q2HR PRN PRN Reason: Dry Lips Lorazepam 100 mg/ Sodium Chloride/ Miscellaneous Information 100 mls @ 1 mls/hr IV TITR ERIN; Protocol Last Titration: 12/30/18 17:52 Dose: 5 mg/hr, 5 mls/hr Documented by: Propofol (Diprivan 10 Mg/Ml) 1,000 mg in 100 mls @ 2.245 mls/hr IV TITR ERIN; Protocol Last Titration: 12/31/18 07:18 Dose: 30 mcg/kg/min, 13.472 mls/hr Documented by: Dextrose/Sodium Chloride (D5ns) 1,000 mls @ 100 mls/hr IV DIRECT ERIN Last Admin: 12/31/18 08:08 Dose: 100 mls/hr Documented by: Levetiracetam 750 mg/ Dextrose 107.5 mls @ 400 mls/hr IV Q12H [facility] Last Admin: 12/31/18 08:24 Dose: 400 mls/hr Documented by: Ceftriaxone Sodium (Rocephin/Ns 2 Gm/100 Ml) 2 gm in 100 mls @ 200 mls/hr IV Q24HR@2200 ERIN; Protocol Last Admin: 12/30/18 23:40 Dose: 200 mls/hr Documented by: Fentanyl Citrate (Fentanyl Drip Premix) 2,000 mcg in 100 mls @ 3.742 mls/hr IV TITR [facility]; Protocol Last Admin: 12/31/18 00:55 Dose: 1 mcg/kg/hr, 3.742 mls/hr Documented by: Lorazepam (Ativan) 2 mg IV Q1H PRN PRN Reason: CIWA-Ar 8-15 Lorazepam (Ativan) 4 mg IV Q15MIN PRN PRN Reason: CIWA-Ar >25 Metoclopramide HCl (Reglan) 10 mg IV Q6H PRN PRN Reason: Nausea And Vomiting Multi-Ingred Cream/Lotion/Oil/Oint (Artificial Tears Ophth Oint) 1 applic OU Q4HR PRN PRN Reason: Dry Eye(s) Ondansetron HCl (Zofran) 4 mg IV Q3H PRN PRN Reason: Nausea And Vomiting Simple Syrup (Simple Syrup) 15 ml FEEDTUBE PRN PRN PRN Reason: Hypoglycemia Simple Syrup (Simple Syrup) 30 ml FEEDTUBE PRN PRN PRN Reason: Hypoglycemia Sodium Bicarbonate (Sodium Bicarbonate) 325 mg FEEDTUBE PRN PRN PRN Reason: For Clogged Feeding Tube Sodium Chloride (Sodium Chloride Flush Syringe 10 Ml) 10 ml IV BID [facility] Last Admin: 12/31/18 11:44 Dose: 10 ml Documented by: Sodium Chloride (Sodium Chloride Flush Syringe 10 Ml) 10 ml IV PRN PRN PRN Reason: LINE FLUSH Physical Examination Vital signs: Vital Signs Resp Pulse Ox 15 95 12/30/18 15:11 12/30/18 15:11 Results - Laboratory Findings CBC and BMP: 12/30/18 15:30 12/30/18 17:00 ABG POC ABG pH 7.300 (7.35-7.45) L 12/30/18 22:12 ABG pH 7.296 pH Units (7.350-7.450) L 12/31/18 04:40 POC ABG pCO2 36.6 (35-45) 12/30/18 22:12 ABG pCO2 36.5 mm Hg 12/31/18 04:40 POC ABG pO2 126 (80-105) H 12/30/18 22:12 ABG pO2 89.8 mm Hg (80.0-90.0) 12/31/18 04:40 POC ABG HCO3 18.0 (22-26 mml/L) 12/30/18 22:12 POC ABG Total CO2 19 (23-27mmol/L) 12/30/18 22:12 POC ABG O2 Sat 98 12/30/18 22:12 ABG O2 Saturation 96.8 % (95.0-99.0) 12/31/18 04:40 Abnormal lab findings: Abnormal Labs 12/30/18 12/30/18 12/30/18 15:30 17:00 18:03 WBC 12.4 H RBC 5.07 H Hgb 15.3 H RDW 13.1 L Lymph % (Auto) 9.0 L [place] % (Auto) 8.1 H Lymph # 1.1 L [place] # 1.0 H Seg Neutrophils % 82.3 H Seg Neutrophils # 10.2 H POC ABG pH 7.265 L ABG pH POC ABG pO2 212 H ABG HCO3 ABG Base Excess ABG Hemoglobin Chloride 110.0 H Carbon Dioxide 17 L Glucose 111 H Calcium 8.2 L Phosphorus AST 367 H ALT 92 H 12/30/18 12/30/18 12/31/18 20:44 22:12 04:40 WBC RBC Hgb RDW Lymph % (Auto) [place] % (Auto) Lymph # [place] # Seg Neutrophils % Seg Neutrophils # POC ABG pH 7.300 L ABG pH 7.296 L POC ABG pO2 126 H ABG HCO3 17.4 L ABG Base Excess -8.3 L ABG Hemoglobin 13.6 L Chloride Carbon Dioxide Glucose Calcium 7.7 L Phosphorus 4.70 H AST ALT Assessment and Plan 41 y/o male found unresponsive and now on sedation for possible seizure. 1. Stop all sedation 2. CXR is stable 3. ABG shows metabolic acidosis but normal renal function, normal lactic acid, Blood sugar normal, did have positive UDS for phenyclidines (PCP pratibha dust). could explain the seizure and the acidosis. Chloride was also elevated as well. 4. If patient wakes up and can follow commands, will extubate, no matter what time. CCT 31 minutes.
[2018-12-31] MEDS: cefTRIAXone/NS 2 GM/100 ML 2 GM/100 ML BAG IV SCH (22:00)
[2018-12-31] MEDS: ENOXAPARIN 40 MG/0.4 ML INJ SUB-Q SCH (22:00)
--- NOTE | 2019-01-01 04:21 | XRay Report ---
CHEST 1 VIEW INDICATION / CLINICAL INFORMATION: follow up respiratory failure. COMPARISON: 12/31/2018 FINDINGS: SUPPORT DEVICES: None. HEART / MEDIASTINUM: No significant abnormality. LUNGS / PLEURA: There is airspace disease noted throughout the left lower lobe. This is much less con solidated compared with the most recent chest radiograph. No significant pleural effusion. Right lung is clear. No pneumothorax. ADDITIONAL FINDINGS: No significant additional findings. IMPRESSION: 1. Improving left lower lobe airspace disease. Signer Name: Yelitza Rodriguez MD Signed: 01/01/2019 4:16 AM Workstation Name: [id number] [email or web address]
[2019-01-01] MEDS: levETIRAcetam 750 MG in DEXTROSE 5% IN WATER 100 ML IV SCH ×2 (08:00→19:43)
[2019-01-01] MEDS: FAMOTIDINE 20 MG/2 ML INJ IV SCH ×2 (10:10→21:37)
--- NOTE | 2019-01-01 12:59 | Progress Note ---
Assessment and Plan Assessment and plan: Patient is a 41 yo man without known chronic medical problems except for PCP and Benzo dependence who presents to [facility] with AMS. He was found unresponsive by Mother. Mother cannot tell how long he was passed out. Last well-known time was last night. Mother called EMS and per EMS patient had a tonic-clonic seizure just before arrival in the emergency room and was given 2 milligrams of Versed. Patient's UDS positive for PCP and benzos. Patient was intubated in the emergency room. * pCXR Impression: Volume loss of left lung with elevated left hemidiaphragm, no acute disease, ET tube has tip 8 cm above juan jose * CT head without contrast Impression: Negative Acute respiratory failure s/p ETT, he self extubated on 12/31/18 Acute toxic metabolic encephalopathy with PCP and Bzo, still confused PCP dependence Metabolic acidosis Status epilepticus Seizure: Patient initiated on IV Keppra Transaminitis, most likely ETOH related DVT prophylaxis On Lovenox and GI prophylaxis History Interval history: Patient was seen and examined. Follow-up on current diagnosis of Respiratory failure. No overnight events reported to me. Patient intubated. Imaging, nursing note, chart, labs and old chart reviewed. I spoke with mother and his Uncle Jostin at bedside. Hospitalist Physical - Physical exam Narrative exam: Gen: WDWN, critically ill on life support/MV HEENT: NCAT, EOMI, Pupils pinpoint, OP Clear Neck: supple, no adenopathy, no thyromegaly, no JVD CVS/Heart: RRR, normal S1S2, pulses present bilaterally Chest/Lungs: CTA B, Symmetrical chest expansion, good air entry bilaterally GI/Abdomen: soft, NTND, good bowel sounds, no guarding or rebound /Bladder: no suprapubic tenderness, no CVA or paraspinal tenderness Extermity/Skin: no c/c/e, MSK: sedated Neuro: sedated Psych: sedated - Constitutional Vitals: Temp Pulse Resp BP Pulse Ox 98.8 F 89 20 122/80 100 01/01/19 03:29 01/01/19 12:00 01/01/19 12:00 01/01/19 12:00 01/01/19 12:00 General appearance: Present: no acute distress, well-nourished Results - Labs CBC & Chem 7: 12/30/18 15:30 12/30/18 17:00 Labs: Laboratory Last Values WBC 12.4 K/mm3 (4.5-11.0) H 12/30/18 15:30 RBC 5.07 M/mm3 (3.65-5.03) H 12/30/18 15:30 Hgb 15.3 gm/dl (11.8-15.2) H 12/30/18 15:30 Hct 45.1 % (35.5-45.6) 12/30/18 15:30 MCV 89 fl (84-94) 12/30/18 15:30 MCH 30 pg (28-32) 12/30/18 15:30 MCHC 34 % (32-34) 12/30/18 15:30 RDW 13.1 % (13.2-15.2) L 12/30/18 15:30 Plt Count 215 K/mm3 (140-440) 12/30/18 15:30 Lymph % (Auto) 9.0 % (13.4-35.0) L 12/30/18 15:30 [place] % (Auto) 8.1 % (0.0-7.3) H 12/30/18 15:30 Eos % (Auto) 0.1 % (0.0-4.3) 12/30/18 15:30 Baso % (Auto) 0.5 % (0.0-1.8) 12/30/18 15:30 Lymph # 1.1 K/mm3 (1.2-5.4) L 12/30/18 15:30 [place] # 1.0 K/mm3 (0.0-0.8) H 12/30/18 15:30 Eos # 0.0 K/mm3 (0.0-0.4) 12/30/18 15:30 Baso # 0.1 K/mm3 (0.0-0.1) 12/30/18 15:30 Seg Neutrophils % 82.3 % (40.0-70.0) H 12/30/18 15:30 Seg Neutrophils # 10.2 K/mm3 (1.8-7.7) H 12/30/18 15:30 POC ABG pH 7.300 (7.35-7.45) L 12/30/18 22:12 ABG pH 7.296 pH Units (7.350-7.450) L 12/31/18 04:40 POC ABG pCO2 36.6 (35-45) 12/30/18 22:12 ABG pCO2 36.5 mm Hg 12/31/18 04:40 POC ABG pO2 126 (80-105) H 12/30/18 22:12 ABG pO2 89.8 mm Hg (80.0-90.0) 12/31/18 04:40 POC ABG HCO3 18.0 (22-26 mml/L) 12/30/18 22:12 ABG HCO3 17.4 mmol/L (20.0-26.0) L 12/31/18 04:40 POC ABG Total CO2 19 (23-27mmol/L) 12/30/18 22:12 POC ABG O2 Sat 98 12/30/18 22:12 ABG O2 Saturation 96.8 % (95.0-99.0) 12/31/18 04:40 ABG O2 Content 18.2 (0.0-44) 12/31/18 04:40 POC ABG Base Excess -8 ((-2) - (+3)mmol/L) 12/30/18 22:12 ABG Base Excess -8.3 mmol/L (-2.0-3.0) L 12/31/18 04:40 ABG Hemoglobin 13.6 gm/dl (14.0-18.0) L 12/31/18 04:40 ABG Carboxyhemoglobin 1.4 % (0.0-5.0) 12/31/18 04:40 ABG Methemoglobin 0.4 % (0.0-1.5) 12/31/18 04:40 Oxyhemoglobin 95.1 % (95.0-99.0) 12/31/18 04:40 FiO2 25 % 12/31/18 04:40 Sodium 144 mmol/L (137-145) 12/30/18 17:00 Potassium 4.0 mmol/L (3.6-5.0) 12/30/18 17:00 Chloride 110.0 mmol/L (98-107) H 12/30/18 17:00 Carbon Dioxide 17 mmol/L (22-30) L 12/30/18 17:00 Anion Gap 21 mmol/L 12/30/18 17:00 BUN 16 mg/dL (9-20) 12/30/18 17:00 Creatinine 1.3 mg/dL (0.8-1.5) 12/30/18 17:00 Estimated GFR > 60 ml/min 12/30/18 17:00 BUN/Creatinine Ratio 12 % 12/30/18 17:00 Glucose 111 mg/dL (75-100) H 12/30/18 17:00 Lactic Acid 0.70 mmol/L (0.7-2.0) 12/30/18 17:00 Calcium 7.7 mg/dL (8.4-10.2) L 12/30/18 20:44 Phosphorus 4.70 mg/dL (2.5-4.5) H 12/30/18 20:44 Magnesium 2.30 mg/dL (1.7-2.3) 12/30/18 20:44 Total Bilirubin 0.70 mg/dL (0.1-1.2) 12/30/18 17:00 AST 367 units/L (5-40) H 12/30/18 17:00 ALT 92 units/L (7-56) H 12/30/18 17:00 Alkaline Phosphatase 55 units/L (35-129) 12/30/18 17:00 Ammonia 55.0 umol/L (25-60) 12/30/18 20:44 Total Protein 6.7 g/dL (6.3-8.2) 12/30/18 17:00 Albumin 4.3 g/dL (3.9-5) 12/30/18 17:00 Albumin/Globulin Ratio 1.8 % 12/30/18 17:00 Urine Color Yellow (Yellow) 12/30/18 16:30 Urine Turbidity Slightly-cloudy (Clear) 12/30/18 16:30 Urine pH 5.0 (5.0-7.0) 12/30/18 16:30 Ur Specific [place] 1.017 (1.003-1.030) 12/30/18 16:30 Urine Protein 100 mg/dl mg/dL (Negative) 12/30/18 16:30 Urine Glucose (UA) Neg mg/dL (Negative) 12/30/18 16:30 Urine Ketones Tr mg/dL (Negative) 12/30/18 16:30 Urine Blood Lg (Negative) 12/30/18 16:30 Urine Nitrite Neg (Negative) 12/30/18 16:30 Urine Bilirubin Neg (Negative) 12/30/18 16:30 Urine Urobilinogen < 2.0 mg/dL (<2.0) 12/30/18 16:30 Ur Leukocyte Esterase Neg (Negative) 12/30/18 16:30 Urine WBC (Auto) 4.0 /HPF (0.0-6.0) 12/30/18 16:30 Urine RBC (Auto) 1.0 /HPF (0.0-6.0) 12/30/18 16:30 U Epithel Cells (Auto) 1.0 /HPF (0-13.0) 12/30/18 16:30 Urine Bacteria (Auto) 2+ /HPF (Negative) 12/30/18 16:30 Hyaline Casts 3 /LPF 12/30/18 16:30 Urine Mucus Few /HPF 12/30/18 16:30 Urine Opiates Screen Presumptive negative 12/30/18 16:30 Urine Methadone Screen Presumptive negative 12/30/18 16:30 Ur Barbiturates Screen Presumptive negative 12/30/18 16:30 Ur Phencyclidine Scrn Presumptive positive 12/30/18 16:30 Ur Amphetamines Screen Presumptive negative 12/30/18 16:30 U Benzodiazepines Scrn Presumptive positive 12/30/18 16:30 Urine Cocaine Screen Presumptive negative 12/30/18 16:30 U Marijuana (THC) Screen Presumptive negative 12/30/18 16:30 Drugs of Abuse Note Disclamer 12/30/18 16:30 Plasma/Serum Alcohol < 0.01 % (0-0.07) 12/30/18 18:34 Hepatitis A IgM Ab Non-reactive (NonReactive) 12/30/18 20:44 Hep Bs Antigen Non-reactive (Negative) 12/30/18 20:44 Hep B Core IgM Ab Non-reactive (NonReactive) 12/30/18 20:44 Hepatitis C Antibody Non-reactive (NonReactive) 12/30/18 20:44 Active Medications - Current Medications Current Medications: Generic Name Dose Route Start Last Admin Trade Name Freq PRN Reason Stop Dose Admin Albuterol 2.5 mg 12/30/18 20:11 Proventil IH Q4HRT PRN Shortness Of Breath Lipase/Protease/Amylase 1 each 12/30/18 20:05 Pancredileep Bowser 10,500 Unit FEEDTUBE PRN PRN For Clogged Feeding Tube Dextrose 50 ml 12/30/18 20:05 D50w (25gm) Syringe IV Q30MIN PRN Hypoglycemia Protocol Enoxaparin Sodium 40 mg 12/30/18 21:00 12/31/18 22:00 Enoxaparin SUB-Q 40 mg QDAY@2200 ERIN Administration Famotidine 20 mg 12/30/18 22:00 01/01/19 10:10 Pepcid IV 20 mg BID ERIN Administration Hydrophilic Ointment 1 applic 12/31/18 00:38 Vaseline Lip Therapy TP Q2HR PRN Dry Lips Dextrose/Sodium Chloride 1,000 mls @ 100 mls/hr 12/30/18 21:00 12/31/18 18:35 D5ns IV 100 mls/hr DIRECT ERIN Administration Levetiracetam 750 mg/ Dextrose 107.5 mls @ 400 mls/hr 12/31/18 06:00 01/01/19 08:00 IV 400 mls/hr Q12H ERIN Administration Ceftriaxone Sodium 2 gm in 100 mls @ 200 mls/hr 12/30/18 21:00 12/31/18 22:00 Rocephin/Ns 2 Gm/100 Ml IV 200 mls/hr Q24HR@2200 ERIN Administration Protocol Metoclopramide HCl 10 mg 12/30/18 20:05 Reglan IV Q6H PRN Nausea And Vomiting Multi-Ingred Cream/Lotion/Oil/Oint 1 applic 12/31/18 00:38 Artificial Tears Ophth Oint OU Q4HR PRN Dry Eye(s) Ondansetron HCl 4 mg 12/30/18 20:05 Zofran IV Q3H PRN Nausea And Vomiting Simple Syrup 15 ml 12/30/18 20:05 Simple Syrup FEEDTUBE PRN PRN Hypoglycemia Simple Syrup 30 ml 12/30/18 20:05 Simple Syrup FEEDTUBE PRN PRN Hypoglycemia Sodium Bicarbonate 325 mg 12/30/18 20:05 Sodium Bicarbonate FEEDTUBE PRN PRN For Clogged Feeding Tube Sodium Chloride 10 ml 12/30/18 22:00 01/01/19 10:10 Sodium Chloride Flush Syringe 10 Ml IV 10 ml BID ERIN Administration Sodium Chloride 10 ml 12/30/18 20:05 Sodium Chloride Flush Syringe 10 Ml IV PRN PRN LINE FLUSH Nutrition/Malnutrition Assess - Dietary Evaluation Nutrition/Malnutrition Findings: Nutrition Notes Start: 12/31/18 14:43 Freq: Status: Active Protocol: Document 12/31/18 14:43 RM (Rec: 12/31/18 14:56 RM [id number]) Nutrition Notes Need for Assessment generated from: MD Order Initial or Follow up Assessment Other Pertinent Diagnosis Acute encephalopathy, Seizure, PCP dependence Current Diet TF (blank) Labs/Tests BG 111 Pertinent Medications Propofol at 13.5 ml/hr Height 5 ft 9 in Weight 74.843 kg [place] Body Weight (kg) 72.72 BMI 24.3 Subjective/Other Information Consulted for TF recommendation. Pt on vent. Per nurse pt has OG tube in place. Burn Absent Trauma Absent Minimum of two criteria No #1 Nutrition Diagnosis Inadequate oral intake Etiology on vent As Evidenced by Signs and Symptoms TF consult Is patient on ventilator? Yes Is Patient Ambulatory and/or Out of Bed No REE-([facility]-confined to bed) 1963.800 Calculation Used for Recommendations [facility] Additional Notes Protein Needs: 90-150g (1.2-2g /kg) Fluid Needs: 1 ml/kcal Nutrition Intervention Nutrition Support: Promote at 80 ml/hr Water flush of 50 mls q 4 hrs Kcal 1,920 Protein (gm) 120 Fluid (mL) 1,611 Goal #1 TF tolerance Goal #2 Meet at least 80% of calorie and protein needs via TF Anticipated Discharge Needs: Unable to determine at this time Follow-Up By: 01/02/19 Additional Comments Follow for new TF
[2019-01-01] MEDS: ENOXAPARIN 40 MG/0.4 ML INJ SUB-Q SCH (21:37)
[2019-01-01] MEDS: cefTRIAXone/NS 2 GM/100 ML 2 GM/100 ML BAG IV SCH (21:37)
[2019-01-02] MEDS: levETIRAcetam 750 MG in DEXTROSE 5% IN WATER 100 ML IV SCH ×2 (06:56→17:18)
[2019-01-02] MEDS: FAMOTIDINE 20 MG/2 ML INJ IV SCH (09:47)
--- NOTE | 2019-01-02 13:20 | Consultation ---
Past History Past Medical History: No medical history Past Surgical History: No surgical history Social history: lives with family, other (PCP abuse and benzo abuse) Family history: no significant family history Medications and Allergies Allergies Allergy/AdvReac Type Severity Reaction Status Date / Time No Known Allergies Allergy Unverified 12/30/18 17:15 Home Medications Medication Instructions Recorded Confirmed Last Taken Type No Known Home Medications [No 12/31/18 12/31/18 Unknown History Reported Home Medications] Active Meds: Active Medications Albuterol (Proventil) 2.5 mg IH Q4HRT PRN PRN Reason: Shortness Of Breath Dextrose (D50w (25gm) Syringe) 50 ml IV Q30MIN PRN; Protocol PRN Reason: Hypoglycemia Enoxaparin Sodium (Enoxaparin) 40 mg SUB-Q QDAY@2200 ERIN Last Admin: 01/01/19 21:37 Dose: 40 mg Documented by: Famotidine (Pepcid) 20 mg PO BID ERIN Levetiracetam 750 mg/ Dextrose 107.5 mls @ 400 mls/hr IV Q12H ERIN Stop: 01/02/19 23:59 Last Admin: 01/02/19 06:56 Dose: 400 mls/hr Documented by: Ceftriaxone Sodium (Rocephin/Ns 2 Gm/100 Ml) 2 gm in 100 mls @ 200 mls/hr IV Q24HR@2200 EIRN; Protocol Last Admin: 01/01/19 21:37 Dose: 200 mls/hr Documented by: Levetiracetam (Keppra) 750 mg PO BID ERIN Ondansetron HCl (Zofran) 4 mg IV Q3H PRN PRN Reason: Nausea And Vomiting Physical Examination - Vital Signs Vital Signs: Vital Signs Resp Pulse Ox 15 95 12/30/18 15:11 12/30/18 15:11 Results - Laboratory Findings CBC and BMP: 12/30/18 15:30 12/30/18 17:00 Abnormal Lab Findings: Abnormal Labs 12/30/18 12/30/18 12/30/18 15:30 17:00 18:03 WBC 12.4 H RBC 5.07 H Hgb 15.3 H RDW 13.1 L Lymph % (Auto) 9.0 L [place] % (Auto) 8.1 H Lymph # 1.1 L [place] # 1.0 H Seg Neutrophils % 82.3 H Seg Neutrophils # 10.2 H POC ABG pH 7.265 L ABG pH POC ABG pO2 212 H ABG HCO3 ABG Base Excess ABG Hemoglobin Chloride 110.0 H Carbon Dioxide 17 L Glucose 111 H Calcium 8.2 L Phosphorus AST 367 H ALT 92 H 12/30/18 12/30/18 12/31/18 20:44 22:12 04:40 WBC RBC Hgb RDW Lymph % (Auto) [place] % (Auto) Lymph # [place] # Seg Neutrophils % Seg Neutrophils # POC ABG pH 7.300 L ABG pH 7.296 L POC ABG pO2 126 H ABG HCO3 17.4 L ABG Base Excess -8.3 L ABG Hemoglobin 13.6 L Chloride Carbon Dioxide Glucose Calcium 7.7 L Phosphorus 4.70 H AST ALT Assessment and Plan 43 YEAR OLD MALE WITH HISTORY OF NO SIGNIFICANT MEDICAL PROBLEM AND WITH HISTORY OF RECREATIONAL DRUG ABUSE WHO WAS ARRESTED THREE TIMES FOR DUI WAS ADMITTED ON12/30/2018 FOR BEING FOUND UNRESPONSIVE IN THE MORNING OF 12/30/2018. PATIENT DEVELOPED AN EPISODE OF GTC SEIZURE ON WAY TO HOSPITAL.WORK UP SHOWED DRUG SCREEN BEING POSITIVE FOR BENZO AND PCP. PATIENT ALSO HAD EVIDENCE OF INFECTION WITH ELEVATED WHITE BLOOD CELL COUNT. PATIENT WAS ADMITTED TO INTENSIVE CARE UNIT AND INTUBATED FOR RESPIRATORY SUPPORT.CURRENTLY OFF VENTILATOR AND IS WAITING FOR FURTHER WORK UP BLOOD WAS FOUND IN HIS STOOL. PHYSICAL EXAMINATION IN NOACUTE DISTRESS, HE IS ALERT AND APPROPRIATE ,HAS INSIGHT INTO HIS CONDITION AND ANSWERS QUESTIONS APPROPRIATELY. HEART-NORMAL RATE AND RHYTHM. CAROTIDS- BOTH PALPABLE, CRANIAL NERVES- PUPILS REACT TO LIGHT AND ACCOMMODATION. EXTRA OCULAR MOVEMENT IS INTACT, NO FACIAL ASYMMERTY, OTHER CRANIAL NERVES ARE WITH IN NORMAL LIMIT. MOTOR- NORMAL STRENGTH IN ALL FOUR EXTREMITIES REFLEXES- NORMAL WITHOUT ASYMMETRY AND BILATERAL DOWN GOING TOES. COORDINATION- WITH IN NORMAL LIMIT. SENSORY- GROSSLY WITH IN NORMAL LIMIT GAIT- NORMAL IMPRESSION 1. ACUTE ENCEPHALOPATHY FROM DRUG OVERDOSE, RESOLVED NOW 2. SEIZURE , MOST LIKLEY PCP INDUCED, 3. ELEVATED WBC- ON ANTIBIOTICS RECOMMEND. 1. PATIENT SHOULD CONTINUE KEPPRA UP UNTIL HE IS ENROLLED IN A DETOX REHAB PROGRAM 2. PATIENT WAS COUNSELED BY ME, BOTH THE MOTHER AND THE PATIEN, BOTH OF THEM AGREED TO BE ENROLLED IN REHAB PROGRAM 3. SUBSTANCE ABUSE REHAB PROGRAM SHOULD BE CONTACTED AND PATIENT ENROLLED PRIOR TO DISCHARGE.
[2019-01-02] MEDS: FAMOTIDINE 20 MG TAB PO SCH (21:27)
[2019-01-02] MEDS: ENOXAPARIN 40 MG/0.4 ML INJ SUB-Q SCH (21:35)
[2019-01-02] MEDS: cefTRIAXone/NS 2 GM/100 ML 2 GM/100 ML BAG IV SCH (21:38)
[2019-01-03 06:45] VITALS: BP 117/82
[2019-01-03 07:33] LABS: Hematocrit 36.8 % (35.5-45.6); Hemoglobin 12.5 gm/dl (11.8-15.2); Mean Corpuscular HGB Conc 34 % (32-34); Mean Corpuscular Volume 90 fl (84-94); Platelet Count 176 K/mm3 (140-440); Red Blood Count 4.12 M/mm3 (3.65-5.03); Red Cell Distribution Width 12.6 % (13.2-15.2)
[2019-01-03 07:56] LABS: Alanine Aminotransferase 99 units/L (7-56); Albumin 3.2 g/dL (3.9-5); BUN/Creatinine Ratio 10; Blood Urea Nitrogen 7 mg/dL (9-20); Calcium 8.4 mg/dL (8.4-10.2); Hemolysis Index 4
[2019-01-03] MEDS: FAMOTIDINE 20 MG TAB PO SCH (09:56)
[2019-01-03] MEDS ORDERED: levETIRAcetam 500 MG/5 ML ORAL LIQD PO SCH (10:00)
--- NOTE | 2019-01-03 10:40 | Discharge Summary ---
Providers - Providers Date of Admission: 12/30/18 20:05 Attending physician: MAREN MCFADDEN MD 12/30/18 20:07 Consult to Dietitian/Nutrition [CONS] Routine Physician Instructions: Assess nutrtn needs, initiate, modify, manage TF Reason For Exam: Reason for Consult: Write/Manage Tube Feeding Reason for Consult: Write/Manage Tube Feeding 12/31/18 00:40 Consult to Dietitian/Nutrition [CONS] Routine Physician Instructions: Reason For Exam: Reason for Consult: Evaluate nutritional intake 01/02/19 08:05 Consult to Physician [CONS] Routine Comment: Consulting Provider: DANIEL ALVARADO Physician Instructions: Reason For Exam: E/M and treat for new onset seizure 01/02/19 11:37 Consult to Mental Health [CONS] Urgent Reason For Exam: [address] consult to:: assessor consumer sales representative Notified:: awaiting call back Comment:: fax to [phone] Primary care physician: [facility] PROVID[facility] Hospitalization Reason for admission: overdose Condition: Critical Hospital course: Patient is a 41 yo man without known chronic medical problems except for PCP and Benzo dependence who presents to [facility] with AMS. He was found unresponsive by Mother. Mother cannot tell how long he was passed out. Last well-known time was last night. Mother called EMS and per EMS patient had a tonic-clonic seizure just before arrival in the emergency room and was given 2 milligrams of Versed. Patient's UDS positive for PCP and benzos. Patient was intubated in the emergency room. Other records includes DUI AND ARRESTED THREE TIMES * pCXR Impression: Volume loss of left lung with elevated left hemidiaphragm, no acute disease, ET tube has tip 8 cm above juan jose * CT head without contrast Impression: Negative * He was intially intubated and admitted to ICU and treated for respiratory failure * He has been doing well clinically since extubation * Per documentation it appears the patient "Patient is not on 1013, i was told incorrectly, he denies ever having SI, HI. " * He was seen by Neurology with recommendation for Keppra and also Detox Program * Phsych saw and evaluated the patient with the following recommendations * Patient is Medically stable for discharge and follow [facility] Psych recommendations * I informed patient his mother will like to speak to me, he will only give permission after his discussion with psych, CM informed. * Stongly encouraged patient to consider inpatient detox program Acute respiratory failure s/p ETT, he self extubated on 12/31/18 Acute toxic metabolic encephalopathy with PCP and Bzo, still confused PCP dependence Metabolic acidosis SIRS, poa, non infectious elevation of WBC on empiric abc, no source of infection identified Status epilepticus Seizure: Patient initiated on IV Keppra Transaminitis, most likely ETOH related D Disposition: DC-01 TO HOME OR SELFCARE Time spent for discharge: 35 mins Core Measure Documentation - Palliative Care Palliative Care/ Comfort Measures: Not Applicable - Core Measures Any of the following diagnoses?: none Exam - Physical Exam Narrative exam: VITAL SIGNS: Reviewed. GENERAL: The patient appears normally developed, Vital signs as documented. HEAD: No signs of head trauma. EYES: Pupils are equal. Extraocular motions intact. EARS: Hearing grossly intact. MOUTH: Oropharynx is normal. NECK: No adenopathy, no JVD. CHEST: Chest with clear breath sounds bilaterally. No wheezes, rales, or rhonchi. CARDIAC: Regular rate and rhythm. S1 and S2, without murmurs, gallops, or rubs. VASCULAR: No Edema. Peripheral pulses normal and equal in all extremities. ABDOMEN: Soft, non tender and non distended. No rebound or guarding, and no masses palpated. Bowel Sounds normal. MUSCULOSKELETAL: Good range of motion of all major joints. Extremities without clubbing, cyanosis or edema. NEUROLOGIC EXAM: Alert and oriented x 3 No focal sensory or strength deficits. Speech normal. Follows commands. PSYCHIATRIC: Mood normal. SKIN: detial exam as documented in skin assessment - Constitutional Vitals: Temp Pulse Resp BP Pulse Ox 98.1 F 64 18 117/82 94 01/03/19 06:38 01/02/19 23:39 01/03/19 06:45 01/03/19 06:38 01/03/19 06:45 Plan Activity: no driving until cleared by PCP, fall precautions Diet: low fat Special Instructions: record daily BP diary, smoking cessation, follow up in rehab Care Plan Goals: Recovery from substance abuse Plan of Treatment: Enroll in Detox program Health Concerns: complications of continues substance abuse or seizure due to non compliance Follow up with: [facility] [Outside] - 7 Days LETICIA LEGER MD [Staff Physician] - 7 Days PRIMARY CAREMD [Primary Care Provider] - 7 Days PAMELA WELSH MD [Staff Physician] - 7 Days
--- NOTE | 2019-01-03 15:00 | Consultation ---
History of Present Illness - Reason for Consult Consult date: 01/03/19 Reason for consult: Mental Health Evaluation Requesting physician: MAYANK SALAZAR - Chief Complaint Chief complaint: "I used PCP" - History of Present Psychiatric Illness 43 y.o. white male who presented to the ER unresponsive. Today the patient was calm and cooperative during the assessment. He stated that he was introduced to PCP recently and "probably used to much of it" prior to his ER visit. He stated that he has a hx of substance abuse and have used all types of drugs in the past. He stated, "Using drugs isn't a good thing." He was adamant that he wasn't trying to kill himself. He stated that he is willing to follow up "KEREN" with rehab services once discharged. He denies being depressed when asked. He denies any past suicide attempts. He denies SI/HI's and AVH's. He denies a poor appetite and erratic sleep. He denies alcohol consumption (etoh). He stated that he buy Xanax on the street "sometimes." Per collateral information from the patient's mother Leilani Gonzalez who was at the bedside, she stated that her son have a hx of substance abuse. She does not believe that her son tried to kill himself prior to his arrival to the ER. She is the patient's support system when he is discharged. She stated that she support her son going to rehab services. Medications and Allergies Allergies Allergy/AdvReac Type Severity Reaction Status Date / Time No Known Allergies Allergy Unverified 12/30/18 17:15 Home Medications Medication Instructions Recorded Confirmed Last Taken Type levETIRAcetam [Keppra TAB] 750 mg PO BID #60 tablet 01/03/19 Unknown Rx Active Meds: Active Medications Albuterol (Proventil) 2.5 mg IH Q4HRT PRN PRN Reason: Shortness Of Breath Dextrose (D50w (25gm) Syringe) 50 ml IV Q30MIN PRN; Protocol PRN Reason: Hypoglycemia Enoxaparin Sodium (Enoxaparin) 40 mg SUB-Q QDAY@2200 [facility] Last Admin: 01/02/19 21:35 Dose: 40 mg Documented by: Famotidine (Pepcid) 20 mg PO BID [facility] Last Admin: 01/03/19 09:56 Dose: 20 mg Documented by: Ceftriaxone Sodium (Rocephin/Ns 2 Gm/100 Ml) 2 gm in 100 mls @ 200 mls/hr IV Q24HR@2200 [facility]; Protocol Last Admin: 01/02/19 21:38 Dose: 200 mls/hr Documented by: Levetiracetam (Keppra) 750 mg PO BID [facility] Last Admin: 01/03/19 09:57 Dose: 750 mg Documented by: Ondansetron HCl (Zofran) 4 mg IV Q3H PRN PRN Reason: Nausea And Vomiting Past psychiatric history - Past Medical History Past Medical History: No medical history Past Surgical History: No surgical history - past Psychiatric treatment and history psychiatric treatment history: Hx of Substance Abuse. Denies a fam psy hx. - Social History Social history: lives with family Mental Status Exam - Vital signs Last Vital Signs Temp 98.1 F 01/03/19 06:38 Pulse 64 01/02/19 23:39 Resp 18 01/03/19 06:45 BP 117/82 01/03/19 06:38 Pulse Ox 94 01/03/19 06:45 - Exam Narrative exam: MSE: Appearance: calm, cooperative hospital attire Behavior: regular eye contact Speech: regular rate and tone Mood:: "okay" Affect: congruent to mood Thought Process: linera Thought Content: denies SI/HI's and AVH's Motor Activity: ambulatory Cognition: A/O x 2 Insight: fair Judgment: fair Results Result Diagrams: 01/03/19 06:28 01/03/19 06:28 Abnormal lab results 01/03/19 01/03/19 Range/Units 06:28 06:28 RDW 12.6 L (13.2-15.2) % Potassium 3.4 L (3.6-5.0) mmol/L Chloride 107.1 H (98-107) mmol/L BUN 7 L (9-20) mg/dL Creatinine 0.7 L (0.8-1.5) mg/dL AST 147 H (5-40) units/L ALT 99 H (7-56) units/L Total Protein 5.8 L (6.3-8.2) g/dL Albumin 3.2 L (3.9-5) g/dL All other labs normal. Assessment and Plan Assessment and plan: Impression: Unintentional Overdose. Substance Use DO (PCP). Today the patient was calm and cooperative during the assessment. The patient was positive for benzos. Recommendation/Plan: The patient does not meet 1013 criteria. Discussed the importance to abstain from recreational drug use with the patient, he verbalized understanding. Dispo: The patient can follow up with [facility] or [facility] for outpatient rehab services. Staffed with Dr. Jhon Beltran.
== END 2019-01-03 15:35 | disposition home or self-care (01) | DRG 917 ==
LOC: ED 14:58 → CC1 20:05 → EDBD 20:05 → CC1 12-31 08:45 → 3A 01-01 14:56
PROVIDERS: ADMIT Internal Medicine; ATTEND Internal Medicine
PROC: 4A033R1 Measurement of Arterial Saturation, Peripheral, Percutaneous Approach (ICD-10-PCS; principal; 2018-12-30)
PROC: 5A1945Z Respiratory Ventilation, 24-96 Consecutive Hours (ICD-10-PCS; 2018-12-30)
PROC: 0BH17EZ Insertion of Endotracheal Airway into Trachea, Via Natural or Artificial Opening (ICD-10-PCS; 2018-12-30)
DX: T42.4X1A Poisoning by benzodiazepines, accidental (unintentional), initial encounter (principal); J96.00 Acute respiratory failure, unspecified whether with hypoxia or hypercapnia; E87.2 Acidosis; F19.20 Other psychoactive substance dependence, uncomplicated; R65.10 Systemic inflammatory response syndrome (SIRS) of non-infectious origin without acute organ dysfunction; R74.0 Nonspecific elevation of levels of transaminase and lactic acid dehydrogenase [LDH]; D72.829 Elevated white blood cell count, unspecified; G40.901 Epilepsy, unspecified, not intractable, with status epilepticus; Y92.098 Other place in other non-institutional residence as the place of occurrence of the external cause
CPT/HCPCS: 31500; 36415; 36600; 70450; 71045; 74018; 80053; 80074; 80307; 80320; 81001; 82140; 82310; 82803; 83735; 84100; 85025; 85027; 87070; 87205; 93005; 93010; 94002; 94003; 94640; 94760; G0378; G0480; J0692; J0696; J1650; J1953; J2060; J2704; J3010; J7030; J7042

== ENCOUNTER 2019-01-08 10:06 | Emergency (ER) | payer SELFPAY ==
[2019-01-08] MEDS ORDERED: SODIUM CHLORIDE 0.9% 1000 ML 1,000 ML IV ONE ×2 (10:50→10:51)
[2019-01-08 11:19] LABS: Basophils # (Auto) 0.1 K/mm3 (0.0-0.1); Basophils % (Auto) 0.7 % (0.0-1.8); Eosinophils # (Auto) 0.2 K/mm3 (0.0-0.4); Eosinophils % (Auto) 1.8 % (0.0-4.3); Hematocrit 47.6 % (35.5-45.6); Lymphocytes # (Auto) 3.3 K/mm3 (1.2-5.4); Lymphocytes % (Auto) 24.8 % (13.4-35.0); Mean Corpuscular HGB Conc 34 % (32-34); Mean Corpuscular Volume 89 fl (84-94); Monocytes # (Auto) 1.4 K/mm3 (0.0-0.8); Monocytes % (Auto) 10.2 % (0.0-7.3); Platelet Count 335 K/mm3 (140-440); Red Blood Count 5.36 M/mm3 (3.65-5.03); Red Cell Distribution Width 13.1 % (13.2-15.2)
[2019-01-08 11:37] LABS: BUN/Creatinine Ratio 14; Blood Urea Nitrogen 18 mg/dL (9-20); Calcium 9.4 mg/dL (8.4-10.2); Hemolysis Index 13
[2019-01-08 12:06] LABS: Bilirubin,Urine NEG (Negative); Blood,Urine NEG (Negative); Color,Urine Amber (Yellow); Hyaline Casts,Urine 35 /LPF; Mucus,Urine 3+ /HPF
[2019-01-08 12:10] LABS: Amphetamine Screen,Urine PRESUMPTIVE NEGATIVE; Benzodiazepines Screen,Urine PRESUMPTIVE NEGATIVE; Cannabinoid Screen,Urine PRESUMPTIVE NEGATIVE; Cocaine Screen,Urine PRESUMPTIVE NEGATIVE; Methadone Screen,Urine PRESUMPTIVE NEGATIVE; Opiate Screen,Urine PRESUMPTIVE NEGATIVE
[2019-01-08 12:14] VITALS: BP 124/75
--- NOTE | 2019-01-08 12:53 | XRay Report ---
CHEST 1 VIEW 01/08/2019 12:24 PM INDICATION / CLINICAL INFORMATION: Shortness of breath. COMPARISON: 01/01/2019. FINDINGS: SUPPORT DEVICES: None. HEART / MEDIASTINUM: No significant abnormality. LUNGS / PLEURA: No significant pulmonary or pleural abnormality. (Left lower lobe airspace disease se en on previous studies has resolved). No pneumothorax. ADDITIONAL FINDINGS: No significant additional findings. IMPRESSION: 1. No acute findings. Signer Name: Tamir Kim MD Signed: 01/08/2019 12:49 PM Workstation Name: [id number]
--- NOTE | 2019-01-08 13:45 | Cat Scan Report ---
CT head/brain wo con INDICATION / CLINICAL INFORMATION: 43 years Male; AMS. TECHNIQUE: Routine CT head without contrast. All CT scans at this location are performed using CT dos e reduction for ALARA by means of automated exposure control. COMPARISON: CT scan of the brain from 12/30/2018 FINDINGS: BRAIN / INTRACRANIAL CONTENTS: No acute hemorrhage, mass effect, midline shift, hydrocephalus, or ac [place], large territorial infarct. No chronic infarct or focal atrophy. Normal brain volume and ventricu lar/sulcal size for age. No significant white matter abnormality. Is suggestion of a millimeter size lesion slightly increased CT density seen level of foramen of Michelle on the right side. Is nonspecific . 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 This remains unchanged. CRANIOCERVICAL JUNCTION: No significant abnormality. ORBITS: No significant abnormality of visualized orbits. SINUSES / MASTOIDS: Small retention cyst is seen in the inferior left maxillary sinus. ADDITIONAL FINDINGS: None. IMPRESSION: I do not see an acute parenchymal lesion in the brain. CT findings remain unchanged. Signer Name: Jerry Castro MD Signed: 01/08/2019 1:40 PM Workstation Name: [id number]
--- NOTE | 2019-01-08 13:53 | Emergency Department Report ---
ED General Adult HPI - General Chief complaint: Altered Mental Status Stated complaint: AMS/POSS OD ON DRUGS Time Seen by Provider: 01/08/19 10:45 Source: EMS Mode of arrival: Stretcher Limitations: Altered Mental Status - History of Present Illness Initial comments: Patient presents to the emergency department via EMS with his mother for PCP use. No states the patient was admitted a week and a half ago for changes in his mental status for PCP use. Patient denies melena homicidal for others and denies him voices. Patient states he was just trying to get high.The patient was initially unresponsive to her when she arrived but is lucent upon arrival -: unknown Severity scale (0 -10): 0 Improves with: none Worsens with: none Associated Symptoms: denies other symptoms Treatments Prior to Arrival: none - Related Data Previous Rx's Medication Instructions Recorded Last Taken Type levETIRAcetam [Keppra TAB] 750 mg PO BID #60 tablet 01/03/19 Unknown Rx Allergies Allergy/AdvReac Type Severity Reaction Status Date / Time No Known Allergies Allergy Unverified 12/30/18 17:15 ED Review of Systems ROS: Stated complaint: AMS/POSS OD ON DRUGS Other details as noted in HPI Comment: All other systems reviewed and negative Constitutional: denies: chills, fever Eyes: denies: eye pain, eye discharge, vision change ENT: denies: ear pain, throat pain Respiratory: denies: cough, shortness of breath, wheezing Cardiovascular: denies: chest pain, palpitations Endocrine: no symptoms reported Gastrointestinal: denies: abdominal pain, nausea, diarrhea Genitourinary: denies: urgency, dysuria Musculoskeletal: denies: back pain, joint swelling, arthralgia Skin: denies: rash, lesions Neurological: denies: headache, weakness, paresthesias Psychiatric: denies: anxiety, depression Hematological/Lymphatic: denies: easy bleeding, easy bruising ED Past Medical Hx - Past Medical History Previous Medical History?: Yes Hx Hypertension: No Hx CVA: No Hx Heart Attack/AMI: No Hx Congestive Heart Failure: No Hx Diabetes: No Hx Deep Vein Thrombosis: No Hx Pulmonary Embolism: No Hx GERD: No Hx Liver Disease: No Hx Renal Disease: No Hx Sickle Cell Disease: No Hx Arthritis: No Hx Headaches / Migraines: No Hx Seizures: Yes Hx Kidney Stones: No Hx Psychiatric Treatment: No Hx Asthma: Yes (childhood) Hx COPD: No Hx Tuberculosis: No Hx Dementia: No Hx HIV: No - Surgical History Past Surgical History?: No Hx Coronary Stent: No Hx Open Heart Surgery: No Hx Pacemaker: No Hx Internal Defibrillator: No Hx Cholecystectomy: No Hx Appendectomy: No Hx Breast Surgery: No - Social History Smoking Status: Unknown if ever smoked Substance Use Type: Other - Medications Home Medications: Home Medications Medication Instructions Recorded Confirmed Last Taken Type levETIRAcetam [Keppra TAB] 750 mg PO BID #60 tablet 01/03/19 Unknown Rx ED Physical Exam - General General appearance: alert, in no apparent distress - Head Head exam: Present: atraumatic, normocephalic - Eye Eye exam: Present: normal appearance. Absent: PERRL, EOMI - ENT ENT exam: Present: mucous membranes moist - Neck Neck exam: Present: normal inspection - Respiratory Respiratory exam: Present: normal lung sounds bilaterally. Absent: respiratory distress - Cardiovascular Cardiovascular Exam: Present: regular rate, normal rhythm. Absent: systolic murmur, diastolic murmur, rubs, gallop - GI/Abdominal GI/Abdominal exam: Present: soft, normal bowel sounds. Absent: distended, tenderness - Rectal Rectal exam: Present: deferred - Extremities Exam Extremities exam: Present: normal inspection - Back Exam Back exam: Present: normal inspection - Neurological Exam Neurological exam: Present: alert, oriented X3, CN II-XII intact. Absent: motor sensory deficit - Psychiatric Psychiatric exam: Present: normal affect, normal mood - Skin Skin exam: Present: warm, dry, intact, normal color. Absent: rash ED Course Vital Signs 01/08/19 01/08/19 01/08/19 10:30 11:00 12:00 Temperature 98.2 F Pulse Rate 99 H 110 H 106 H Respiratory 19 13 13 Rate Blood Pressure 115/77 131/81 124/75 O2 Sat by Pulse 96 99 Oximetry ED Medical Decision Making - Lab Data Result diagrams: 01/08/19 11:07 01/08/19 11:07 Lab Results 01/08/19 01/08/19 01/08/19 Range/Units 10:31 11:07 11:07 WBC (4.5-11.0) K/mm3 RBC (3.65-5.03) M/mm3 Hgb (11.8-15.2) gm/dl Hct (35.5-45.6) % MCV (84-94) fl MCH (28-32) pg MCHC (32-34) % RDW (13.2-15.2) % Plt Count (140-440) K/mm3 Lymph % (Auto) (13.4-35.0) % [place] % (Auto) (0.0-7.3) % Eos % (Auto) (0.0-4.3) % Baso % (Auto) (0.0-1.8) % Lymph # (1.2-5.4) K/mm3 [place] # (0.0-0.8) K/mm3 Eos # (0.0-0.4) K/mm3 Baso # (0.0-0.1) K/mm3 Seg Neutrophils % (40.0-70.0) % Seg Neutrophils # (1.8-7.7) K/mm3 Sodium (137-145) mmol/L Potassium (3.6-5.0) mmol/L Chloride (98-107) mmol/L Carbon Dioxide (22-30) mmol/L Anion Gap mmol/L BUN (9-20) mg/dL Creatinine (0.8-1.5) mg/dL Estimated GFR ml/min BUN/Creatinine Ratio % Glucose (75-100) mg/dL POC Glucose 103 (70-105) Calcium (8.4-10.2) mg/dL Urine Color (Yellow) Urine Turbidity (Clear) Urine pH (5.0-7.0) Ur Specific [place] (1.003-1.030) Urine Protein (Negative) mg/dL Urine Glucose (UA) (Negative) mg/dL Urine Ketones (Negative) mg/dL Urine Blood (Negative) Urine Nitrite (Negative) Urine Bilirubin (Negative) Urine Urobilinogen (<2.0) mg/dL Ur Leukocyte Esterase (Negative) Urine WBC (Auto) (0.0-6.0) /HPF Urine RBC (Auto) (0.0-6.0) /HPF U Epithel Cells (Auto) (0-13.0) /HPF Hyaline Casts /LPF Urine Mucus /HPF Salicylates < 0.3 L (2.8-20.0) mg/dL Urine Opiates Screen Urine Methadone Screen Acetaminophen < 5.0 L (10.0-30.0) ug/mL Ur Barbiturates Screen Ur Phencyclidine Scrn Ur Amphetamines Screen U Benzodiazepines Scrn Urine Cocaine Screen U Marijuana (THC) Screen Drugs of Abuse Note Plasma/Serum Alcohol (0-0.07) % 01/08/19 01/08/19 01/08/19 Range/Units 11:07 11:07 11:07 WBC 13.3 H (4.5-11.0) K/mm3 RBC 5.36 H (3.65-5.03) M/mm3 Hgb 16.0 H (11.8-15.2) gm/dl Hct 47.6 H (35.5-45.6) % MCV 89 (84-94) fl MCH 30 (28-32) pg MCHC 34 (32-34) % RDW 13.1 L (13.2-15.2) % Plt Count 335 (140-440) K/mm3 Lymph % (Auto) 24.8 (13.4-35.0) % [place] % (Auto) 10.2 H (0.0-7.3) % Eos % (Auto) 1.8 (0.0-4.3) % Baso % (Auto) 0.7 (0.0-1.8) % Lymph # 3.3 (1.2-5.4) K/mm3 [place] # 1.4 H (0.0-0.8) K/mm3 Eos # 0.2 (0.0-0.4) K/mm3 Baso # 0.1 (0.0-0.1) K/mm3 Seg Neutrophils % 62.5 (40.0-70.0) % Seg Neutrophils # 8.3 H (1.8-7.7) K/mm3 Sodium 142 (137-145) mmol/L Potassium 4.1 (3.6-5.0) mmol/L Chloride 105.8 (98-107) mmol/L Carbon Dioxide 15 L (22-30) mmol/L Anion Gap 25 mmol/L BUN 18 (9-20) mg/dL Creatinine 1.3 (0.8-1.5) mg/dL Estimated GFR > 60 ml/min BUN/Creatinine Ratio 14 % Glucose 122 H (75-100) mg/dL POC Glucose (70-105) Calcium 9.4 (8.4-10.2) mg/dL Urine Color (Yellow) Urine Turbidity (Clear) Urine pH (5.0-7.0) Ur Specific [place] (1.003-1.030) Urine Protein (Negative) mg/dL Urine Glucose (UA) (Negative) mg/dL Urine Ketones (Negative) mg/dL Urine Blood (Negative) Urine Nitrite (Negative) Urine Bilirubin (Negative) Urine Urobilinogen (<2.0) mg/dL Ur Leukocyte Esterase (Negative) Urine WBC (Auto) (0.0-6.0) /HPF Urine RBC (Auto) (0.0-6.0) /HPF U Epithel Cells (Auto) (0-13.0) /HPF Hyaline Casts /LPF Urine Mucus /HPF Salicylates (2.8-20.0) mg/dL Urine Opiates Screen Urine Methadone Screen Acetaminophen (10.0-30.0) ug/mL Ur Barbiturates Screen Ur Phencyclidine Scrn Ur Amphetamines Screen U Benzodiazepines Scrn Urine Cocaine Screen U Marijuana (THC) Screen Drugs of Abuse Note Plasma/Serum Alcohol < 0.01 (0-0.07) % 01/08/19 01/08/19 Range/Units 11:50 11:50 WBC (4.5-11.0) K/mm3 RBC (3.65-5.03) M/mm3 Hgb (11.8-15.2) gm/dl Hct (35.5-45.6) % MCV (84-94) fl MCH (28-32) pg MCHC (32-34) % RDW (13.2-15.2) % Plt Count (140-440) K/mm3 Lymph % (Auto) (13.4-35.0) % [place] % (Auto) (0.0-7.3) % Eos % (Auto) (0.0-4.3) % Baso % (Auto) (0.0-1.8) % Lymph # (1.2-5.4) K/mm3 [place] # (0.0-0.8) K/mm3 Eos # (0.0-0.4) K/mm3 Baso # (0.0-0.1) K/mm3 Seg Neutrophils % (40.0-70.0) % Seg Neutrophils # (1.8-7.7) K/mm3 Sodium (137-145) mmol/L Potassium (3.6-5.0) mmol/L Chloride (98-107) mmol/L Carbon Dioxide (22-30) mmol/L Anion Gap mmol/L BUN (9-20) mg/dL Creatinine (0.8-1.5) mg/dL Estimated GFR ml/min BUN/Creatinine Ratio % Glucose (75-100) mg/dL POC Glucose (70-105) Calcium (8.4-10.2) mg/dL Urine Color [place] (Yellow) Urine Turbidity Cloudy (Clear) Urine pH 5.0 (5.0-7.0) Ur Specific [place] 1.026 (1.003-1.030) Urine Protein 100 mg/dl (Negative) mg/dL Urine Glucose (UA) Neg (Negative) mg/dL Urine Ketones 20 (Negative) mg/dL Urine Blood Neg (Negative) Urine Nitrite Neg (Negative) Urine Bilirubin Neg (Negative) Urine Urobilinogen 2.0 (<2.0) mg/dL Ur Leukocyte Esterase Neg (Negative) Urine WBC (Auto) 12.0 H (0.0-6.0) /HPF Urine RBC (Auto) 7.0 (0.0-6.0) /HPF U Epithel Cells (Auto) 2.0 (0-13.0) /HPF Hyaline Casts 35 /LPF Urine Mucus 3+ /HPF Salicylates (2.8-20.0) mg/dL Urine Opiates Screen Presumptive negative Urine Methadone Screen Presumptive negative Acetaminophen (10.0-30.0) ug/mL Ur Barbiturates Screen Presumptive negative Ur Phencyclidine Scrn Presumptive positive Ur Amphetamines Screen Presumptive negative U Benzodiazepines Scrn Presumptive negative Urine Cocaine Screen Presumptive negative U Marijuana (THC) Screen Presumptive negative Drugs of Abuse Note Disclamer Plasma/Serum Alcohol (0-0.07) % - EKG Data -: EKG Interpreted by Me EKG shows normal: sinus rhythm Rate: tachycardia - Radiology Data Radiology results: report reviewed - Medical Decision Making CT of the head was obtained because the patient was found altered and unresponsive initially before we realized the history of the patient being an abuser of PCP At 2:17 PM the patient is completely lucid and can answer all questions appropriately and wants to be discharged home Critical care attestation.: If time is entered above; I have spent that time in minutes in the direct care of this critically ill patient, excluding procedure time. ED Disposition Clinical Impression: Illicit drug use, Altered mental status, PCP (phencyclidine) abuse Disposition: DC- TO HOME OR SELFCARE Is pt being admited?: No Does the pt Need Aspirin: No Condition: Stable Instructions: Polysubstance Abuse (ED) Additional Instructions: return if worse Referrals: Aquiles Coleman [facility] [Outside] - 3-5 Days [facility] [Primary Care Provider] - 3-5 Days [facility] [Provider Group] - 3-5 Days [facility] [Provider Group] - 3-5 Days Time of Disposition: 14:19
== END 2019-01-08 16:30 | disposition home or self-care (01) ==
LOC: ED 10:06
DX: R41.82 Altered mental status, unspecified (principal); F16.10 Hallucinogen abuse, uncomplicated; J45.909 Unspecified asthma, uncomplicated; Z79.899 Other long term (current) drug therapy
CPT/HCPCS: 36415; 70450; 71045; 80048; 80307; 80320; 81001; 82962; 85025; 87086; 93005; 93010; 96360; 96361; G0480

== ENCOUNTER 2019-01-13 15:15 | Emergency (ER) | payer SELFPAY ==
[2019-01-13] MEDS ORDERED: levETIRAcetam 1000 MG/NS 0.75% 1,000 MG/100 ML BAG IV ONE (15:24)
[2019-01-13] MEDS ORDERED: SODIUM CHLORIDE 0.9% 1000 ML 1,000 ML IV ONE (15:24)
[2019-01-13] MEDS ORDERED: DEXTROSE 50% IN WATER (25GM) 50 ML VIAL IV PRN (15:26)
--- NOTE | 2019-01-13 15:28 | Emergency Department Report ---
<TIMOTHY WAGNER - Last Filed: 01/13/19 23:59> ED General Adult HPI - General Chief complaint: Medical Clearance Stated complaint: OVERDOSE Time Seen by Provider: 01/13/19 15:21 Source: EMS (verbal report received from EMS. EMS documentation not available at time of chart dictation ), RN notes reviewed, old records reviewed Mode of arrival: Stretcher Limitations: Altered Mental Status - History of Present Illness Initial comments: This is a 43-year-old gentleman. This patient is not known to this provider previously. The patient was recently admitted to this hospital for altered mental status secondary to polysubstance abuse. Apparently, he uses PCP and benzodiazepines. Also found to have transaminitis likely secondary to alcohol use, was recently seen by neurology and inpatient consultation, who recommended empiric keppra. Today, the patient is brought to the hospital by emergency medical services for altered mental status. Apparently he was found in bed, minimally responsive. There is a suspicion of polysubstance use. Emergency medical services gave the patient Narcan, which improved his mental status in the field. They report normal Accu-Chek in the field. In the emergency room, the patient is awake, but confused, moving 4 extremities, does not follow commands, does not respond to verbal de-escalation techniques or show of force. He does not have decision- making capacity at this time and is Clinically intoxicated. Therefore, he needs to be evaluated for potentially emergent conditions, such as intracranial bleed, and toxic metabolic ingestions. He required medication with haloperidol and Ativan, as well as physical restraints for his safety and staff safety. -: unknown Radiation: other Quality: other Consistency: other Improves with: other Worsens with: other Associated Symptoms: other - Related Data Previous Rx's Medication Instructions Recorded Last Taken Type levETIRAcetam [Keppra TAB] 750 mg PO BID #60 tablet 01/13/19 Unknown Rx Allergies Allergy/AdvReac Type Severity Reaction Status Date / Time No Known Allergies Allergy Unverified 12/30/18 17:15 ED Review of Systems Comment: Unobtainable due to pts medical conditions ED Past Medical Hx - Past Medical History Hx Hypertension: No Hx CVA: No Hx Heart Attack/AMI: No Hx Congestive Heart Failure: No Hx Diabetes: No Hx Deep Vein Thrombosis: No Hx Pulmonary Embolism: No Hx GERD: No Hx Liver Disease: No Hx Renal Disease: No Hx Sickle Cell Disease: No Hx Arthritis: No Hx Headaches / Migraines: No Hx Seizures: Yes Hx Kidney Stones: No Hx Psychiatric Treatment: No Hx Asthma: Yes (childhood) Hx COPD: No Hx Tuberculosis: No Hx Dementia: No Hx HIV: No - Surgical History Hx Coronary Stent: No Hx Open Heart Surgery: No Hx Pacemaker: No Hx Internal Defibrillator: No Hx Cholecystectomy: No Hx Appendectomy: No Hx Breast Surgery: No - Social History Substance Use Type: Other - Medications Home Medications: Home Medications Medication Instructions Recorded Confirmed Last Taken Type levETIRAcetam [Keppra TAB] 750 mg PO BID #60 tablet 01/13/19 Unknown Rx ED Physical Exam - General Limitations: Altered Mental Status General appearance: alert, appears intoxicated, anxious - Head Head exam: Present: atraumatic, normocephalic - Eye Eye exam: Present: normal appearance, PERRL - ENT ENT exam: Present: mucous membranes dry, normal external ear exam, other (nonspe cific jerking movements noted with eyes, they're intermittent, and they fatigue.) - Neck Neck exam: Present: normal inspection. Absent: tenderness, meningismus - Respiratory Respiratory exam: Present: normal lung sounds bilaterally. Absent: respiratory distress - Cardiovascular Cardiovascular Exam: Present: regular rate, normal rhythm, normal heart sounds. Absent: bradycardia, tachycardia, irregular rhythm, systolic murmur, diastolic murmur, rubs, gallop - GI/Abdominal GI/Abdominal exam: Present: soft. Absent: distended, tenderness, guarding, rebound, rigid, pulsatile mass - Rectal Rectal exam: Present: normal inspection - Extremities Exam Extremities exam: Present: normal inspection, full ROM, other (2+ pulses noted in the bilateral upper, lower extremities. There is no long bone tenderness. Musculoskeletal compartments are soft. The pelvis is stable.). Absent: pedal edema, joint swelling, calf tenderness - Back Exam Back exam: Present: normal inspection, full ROM. Absent: tenderness, CVA tenderness (R), CVA tenderness (L), paraspinal tenderness, vertebral tenderness - Neurological Exam Neurological exam: Present: altered, other (there is no facial droop. The tongue is midline. Extraocular movements appear to be intact. The patient is altered. He does not speak. He is moving 4 extremities spontaneously.) - Psychiatric Psychiatric exam: Present: agitated - Skin Skin exam: Present: warm, dry, intact, normal color. Absent: rash ED Course - Reevaluation(s) Reevaluation #1: 01/13/19 16:11 Differential diagnosis, including not limited to: Toxic metabolic encephalopathy, intracranial hemorrhage, polysubstance intoxication Assessment and plan: 43-year-old gentleman who presents with probable overdose of uncertain intent, likely recreational, has had multiple repeat evaluations at this hospital for similar presentations. He is placed on a hold, screening laboratory studies requested, x-ray the chest unremarkable, noncontrast CT scan of the brain is pending, there is no history of trauma, recent urinalyses are reviewed and appreciated. Patient recently worked up for systemic inflammatory response syndrome, at the current point in time, we do not suspect invasive bacterial illness. Reevaluation #2: 01/13/19 23:18 Patient resting comfortably and in no acute distress. He is still intoxicated and altered. We will observe the patient in this department pending clinical sobriety. Reevaluation #3: 01/14/19 00:00 care will be transferred to Dr Rowan Portillo to dispo once clinically sober ED Medical Decision Making - Lab Data Result diagrams: 01/13/19 15:38 01/13/19 15:38 Vital Signs 01/13/19 15:27 Temperature 97.2 F L Pulse Rate 87 Respiratory 18 Rate Blood Pressure 158/94 O2 Sat by Pulse 97 Oximetry Lab Results 01/13/19 01/13/19 01/13/19 Range/Units 15:38 15:38 15:38 WBC (4.5-11.0) K/mm3 RBC (3.65-5.03) M/mm3 Hgb (11.8-15.2) gm/dl Hct (35.5-45.6) % MCV (84-94) fl MCH (28-32) pg MCHC (32-34) % RDW (13.2-15.2) % Plt Count (140-440) K/mm3 PT 13.1 (12.2-14.9) Sec. INR 1.00 (0.87-1.13) APTT 26.7 (24.2-36.6) Sec. Sodium 144 (137-145) mmol/L Potassium 4.4 (3.6-5.0) mmol/L Chloride 104.2 (98-107) mmol/L Carbon Dioxide 24 (22-30) mmol/L Anion Gap 20 mmol/L BUN 9 (9-20) mg/dL Creatinine 0.9 (0.8-1.5) mg/dL Estimated GFR > 60 ml/min BUN/Creatinine Ratio 10 % Glucose 126 H (75-100) mg/dL POC Glucose (70-105) Calcium 9.4 (8.4-10.2) mg/dL Magnesium 2.30 (1.7-2.3) mg/dL Total Bilirubin 0.50 (0.1-1.2) mg/dL AST 27 (5-40) units/L ALT 23 (7-56) units/L Alkaline Phosphatase 55 (35-129) units/L Ammonia (25-60) umol/L Total Creatine Kinase 446 H (55-170) units/L Total Protein 7.3 (6.3-8.2) g/dL Albumin 4.4 (3.9-5) g/dL Albumin/Globulin Ratio 1.5 % Salicylates (2.8-20.0) mg/dL Plasma/Serum Alcohol (0-0.07) % 01/13/19 01/13/19 01/13/19 Range/Units 15:38 15:38 15:38 WBC (4.5-11.0) K/mm3 RBC (3.65-5.03) M/mm3 Hgb (11.8-15.2) gm/dl Hct (35.5-45.6) % MCV (84-94) fl MCH (28-32) pg MCHC (32-34) % RDW (13.2-15.2) % Plt Count (140-440) K/mm3 PT (12.2-14.9) Sec. INR (0.87-1.13) APTT (24.2-36.6) Sec. Sodium (137-145) mmol/L Potassium (3.6-5.0) mmol/L Chloride (98-107) mmol/L Carbon Dioxide (22-30) mmol/L Anion Gap mmol/L BUN (9-20) mg/dL Creatinine (0.8-1.5) mg/dL Estimated GFR ml/min BUN/Creatinine Ratio % Glucose (75-100) mg/dL POC Glucose (70-105) Calcium (8.4-10.2) mg/dL Magnesium (1.7-2.3) mg/dL Total Bilirubin (0.1-1.2) mg/dL AST (5-40) units/L ALT (7-56) units/L Alkaline Phosphatase (35-129) units/L Ammonia 32.0 (25-60) umol/L Total Creatine Kinase (55-170) units/L Total Protein (6.3-8.2) g/dL Albumin (3.9-5) g/dL Albumin/Globulin Ratio % Salicylates < 0.3 L (2.8-20.0) mg/dL Plasma/Serum Alcohol < 0.01 (0-0.07) % 01/13/19 01/13/19 Range/Units 15:38 15:48 WBC 9.9 (4.5-11.0) K/mm3 RBC 5.29 H (3.65-5.03) M/mm3 Hgb 16.1 H (11.8-15.2) gm/dl Hct 48.1 H (35.5-45.6) % MCV 91 (84-94) fl MCH 30 (28-32) pg MCHC 33 (32-34) % RDW 14.0 (13.2-15.2) % Plt Count 226 (140-440) K/mm3 PT (12.2-14.9) Sec. INR (0.87-1.13) APTT (24.2-36.6) Sec. Sodium (137-145) mmol/L Potassium (3.6-5.0) mmol/L Chloride (98-107) mmol/L Carbon Dioxide (22-30) mmol/L Anion Gap mmol/L BUN (9-20) mg/dL Creatinine (0.8-1.5) mg/dL Estimated GFR ml/min BUN/Creatinine Ratio % Glucose (75-100) mg/dL POC Glucose 93 (70-105) Calcium (8.4-10.2) mg/dL Magnesium (1.7-2.3) mg/dL Total Bilirubin (0.1-1.2) mg/dL AST (5-40) units/L ALT (7-56) units/L Alkaline Phosphatase (35-129) units/L Ammonia (25-60) umol/L Total Creatine Kinase (55-170) units/L Total Protein (6.3-8.2) g/dL Albumin (3.9-5) g/dL Albumin/Globulin Ratio % Salicylates (2.8-20.0) mg/dL Plasma/Serum Alcohol (0-0.07) % - EKG Data -: EKG Interpreted by Me EKG shows normal: sinus rhythm Rate: normal - EKG Data 01/13/19 16:13 The EKG today shows a sinus rhythm, 83 bpm, normal axis, QTC is 483 ms, there is atrial enlargement and motion artifact, the EKG appears to be unchanged from prior EKG from 01/08/2019. - Radiology Data Radiology results: pending, report reviewed, image reviewed interpreted by me: X-ray the chest, interpreted by me, shows no acute disease ED Disposition Clinical Impression: PCP (phencyclidine) abuse, Illicit drug use Disposition: - TO HOME OR SELFCARE Does the pt Need Aspirin: No Condition: Stable Additional Instructions: Do not drive or operate motor vehicles. Recommend following up with the primary care doctor within the next 7-10 days. Take the medication as prescribed. Recommend patient stop using recreational drugs, as recreational drugs may cause disability, , paralysis, loss of quality of life. Return to emergency room right away with new, worsened or different symptoms, or symptoms not present on the initial emergency room evaluation. Prescriptions: levETIRAcetam [Keppra TAB] 750 mg PO BID #60 tablet Referrals: [facility] [Provider Group] - 3-5 Days [facility] [Provider Group] - 3-5 Days [facility] [Outside] - 3-5 Days <LEVON VIEIRA - Last Filed: 01/14/19 14:55> ED Review of Systems ROS: Stated complaint: OVERDOSE Other details as noted in HPI ED Course Vital Signs 01/13/19 01/13/19 01/13/19 15:18 15:27 15:30 Temperature 97.2 F L Pulse Rate 88 87 83 Respiratory 17 18 9 L Rate Blood Pressure 158/94 158/94 Blood Pressure [Left] O2 Sat by Pulse 97 97 96 Oximetry 01/13/19 01/13/19 01/13/19 15:46 16:00 16:15 Temperature Pulse Rate 113 H 121 H 95 H Respiratory 36 H 18 24 Rate Blood Pressure 140/94 156/87 133/82 Blood Pressure [Left] O2 Sat by Pulse Oximetry 01/13/19 01/13/19 01/13/19 16:30 16:45 16:53 Temperature Pulse Rate 88 84 Respiratory 11 L 19 18 Rate Blood Pressure 133/82 128/78 Blood Pressure [Left] O2 Sat by Pulse 98 Oximetry 01/13/19 01/13/19 01/13/19 17:00 17:15 17:30 Temperature Pulse Rate 88 92 H 93 H Respiratory 20 19 18 Rate Blood Pressure 128/78 136/96 136/96 Blood Pressure [Left] O2 Sat by Pulse Oximetry 01/13/19 01/13/19 01/13/19 17:45 18:00 18:16 Temperature Pulse Rate 98 H 93 H 96 H Respiratory 20 20 19 Rate Blood Pressure 155/97 155/97 144/92 Blood Pressure [Left] O2 Sat by Pulse 98 98 Oximetry 01/13/19 01/13/19 01/13/19 18:51 19:00 19:15 Temperature Pulse Rate 94 H 96 H 93 H Respiratory 18 15 16 Rate Blood Pressure 155/97 140/104 149/97 Blood Pressure [Left] O2 Sat by Pulse 98 Oximetry 01/13/19 01/13/19 01/13/19 19:30 19:46 20:00 Temperature Pulse Rate 94 H 96 H 97 H Respiratory 15 13 20 Rate Blood Pressure 139/91 139/91 134/97 Blood Pressure [Left] O2 Sat by Pulse Oximetry 01/13/19 01/13/19 01/13/19 20:16 20:30 20:45 Temperature Pulse Rate 92 H 89 90 Respiratory 18 18 18 Rate Blood Pressure 141/83 121/79 125/87 Blood Pressure [Left] O2 Sat by Pulse Oximetry 01/13/19 01/13/19 01/13/19 21:00 21:15 21:30 Temperature Pulse Rate 89 89 82 Respiratory 16 14 15 Rate Blood Pressure 122/98 121/86 126/74 Blood Pressure [Left] O2 Sat by Pulse Oximetry 01/13/19 01/13/19 01/13/19 21:45 21:49 23:00 Temperature Pulse Rate 87 85 80 Respiratory 15 17 15 Rate Blood Pressure 135/87 122/79 Blood Pressure 135/87 [Left] O2 Sat by Pulse 98 96 Oximetry 01/13/19 01/14/19 01/14/19 23:30 00:00 00:30 Temperature Pulse Rate 81 86 82 Respiratory 17 18 16 Rate Blood Pressure 130/83 132/89 129/84 Blood Pressure [Left] O2 Sat by Pulse 95 94 96 Oximetry 01/14/19 01/14/19 01/14/19 01:00 01:23 01:30 Temperature Pulse Rate 84 89 88 Respiratory 17 11 L 16 Rate Blood Pressure 130/86 133/93 Blood Pressure 137/91 [Left] O2 Sat by Pulse 97 95 Oximetry 01/14/19 01/14/19 01/14/19 02:00 02:15 02:30 Temperature Pulse Rate 81 76 82 Respiratory 24 18 18 Rate Blood Pressure 131/87 118/85 Blood Pressure 131/87 [Left] O2 Sat by Pulse 97 Oximetry 01/14/19 01/14/19 01/14/19 03:00 03:30 03:45 Temperature Pulse Rate 79 89 90 Respiratory 19 12 17 Rate Blood Pressure 121/83 132/88 131/81 Blood Pressure [Left] O2 Sat by Pulse Oximetry 01/14/19 01/14/19 01/14/19 05:22 08:47 11:48 Temperature Pulse Rate 78 76 72 Respiratory 17 18 18 Rate Blood Pressure Blood Pressure 121/82 122/24 125/81 [Left] O2 Sat by Pulse 98 98 98 Oximetry ED Medical Decision Making - Lab Data Result diagrams: 01/13/19 15:38 01/13/19 15:38 - Medical Decision Making Patient is 43 years old male signed out to me by my colleague Dr. Portillo. Patient admitted to the ER for altered mental status candidate to polysubstance abuse. Patient found to be positive for PCP. Patient now is alert, oriented 3 in no acute distress. Patient mother at bedside and she is taking him to a safe house as she reported. Patient is medically and psychiatrically stable for discharge. Critical care attestation.: If time is entered above; I have spent that time in minutes in the direct care of this critically ill patient, excluding procedure time. ED Disposition Is pt being admited?: No
[2019-01-13] MEDS ORDERED: HALOPERIDOL LACTATE 5 MG/1 ML INJ IM PRN (15:39)
[2019-01-13] MEDS ORDERED: LORazepam 2 MG/ML VIAL IM PRN (15:39)
[2019-01-13 15:47] LABS: Hematocrit 48.1 % (35.5-45.6); Hemoglobin 16.1 gm/dl (11.8-15.2); Mean Corpuscular HGB Conc 33 % (32-34); Mean Corpuscular Volume 91 fl (84-94); Platelet Count 226 K/mm3 (140-440); Red Blood Count 5.29 M/mm3 (3.65-5.03)
[2019-01-13 16:03] LABS: Partial Thromboplastin Time 26.7 Sec. (24.2-36.6)
--- NOTE | 2019-01-13 16:09 | XRay Report ---
CHEST 1 VIEW 01/13/2019 3:48 PM INDICATION / CLINICAL INFORMATION: MAIN: Altered Mental Status per ems pt was found by parent unconscious, per parent pt is known for ov erdose unknown last well time. pt was given 2mg of narcan . COMPARISON: Chest x-ray 01/08/2019 FINDINGS: SUPPORT DEVICES: None. HEART / MEDIASTINUM: No significant abnormality. LUNGS / PLEURA: No significant pulmonary or pleural abnormality. No pneumothorax. ADDITIONAL FINDINGS: No significant additional findings. IMPRESSION: 1. No acute findings. Signer Name: Paul Trent MD Signed: 01/13/2019 4:05 PM Workstation Name: [id number]
[2019-01-13 16:10] LABS: Alanine Aminotransferase 23 units/L (7-56); Albumin 4.4 g/dL (3.9-5); BUN/Creatinine Ratio 10; Blood Urea Nitrogen 9 mg/dL (9-20); Calcium 9.4 mg/dL (8.4-10.2); Hemolysis Index 14
--- NOTE | 2019-01-13 19:15 | Cat Scan Report ---
CT HEAD WITHOUT CONTRAST INDICATION / CLINICAL INFORMATION: Altered Mental Status. TECHNIQUE: All CT scans at this location are performed using CT dose reduction for ALARA by means of automated e xposure control. COMPARISON: Head CT 01/08/2019 and 12/30/2018. FINDINGS: HEMORRHAGE: No evidence of intracranial hemorrhage or extra-axial fluid collection. EXTRA-AXIAL SPACES: Cortical sulci, sylvian fissures and basilar cisterns have an unremarkable appear ance. VENTRICULAR SYSTEM: The ventricular system is of normal size and configuration. CEREBRAL PARENCHYMA: No areas of abnormal brain parenchymal attenuation are identified. There is no i ndication of recent infarction. MIDLINE SHIFT OR HERNIATION: There is no mass effect. CEREBELLUM / BRAINSTEM: Brainstem and cerebellum have an unremarkable appearance. INTRACRANIAL VESSELS:No abnormalities are identified on this noncontrast head CT. ORBITS: visualized portions of the orbits have an unremarkable appearance. SOFT TISSUES of HEAD: No significant abnormality. CALVARIUM: Evaluation of bone windows reveals no abnormalities. PARANASAL SINUSES / MASTOID AIR CELLS: Note is made of leftward deviation of the nasal septum. Decrea sed caliber of the air passageways the nasal cavity is observed bilaterally. Paranasal sinuses are fr ee from inflammatory mucosal disease. Mastoid air cells are normally pneumatized. IMPRESSION: 1. No acute intracranial abnormality. No interval change. Signer Name: Arnaldo Fabian MD Signed: 01/13/2019 7:11 PM Workstation Name: [id number]
[2019-01-14 07:11] LABS: Bilirubin,Urine NEG (Negative); Blood,Urine NEG (Negative); Color,Urine Yellow (Yellow); Protein,Urine <15 mg/dL mg/dL (Negative); Urobilinogen,Urine < 2.0 mg/dL (<2.0)
[2019-01-14 07:18] LABS: Amphetamine Screen,Urine PRESUMPTIVE NEGATIVE; Benzodiazepines Screen,Urine PRESUMPTIVE NEGATIVE; Cannabinoid Screen,Urine PRESUMPTIVE NEGATIVE; Cocaine Screen,Urine PRESUMPTIVE NEGATIVE; Methadone Screen,Urine PRESUMPTIVE NEGATIVE; Opiate Screen,Urine PRESUMPTIVE NEGATIVE
[2019-01-14 11:49] VITALS: BP 125/81
== END 2019-01-14 13:30 | disposition home or self-care (01) ==
LOC: ED 15:15
DX: T42.4X1A Poisoning by benzodiazepines, accidental (unintentional), initial encounter (principal); J45.909 Unspecified asthma, uncomplicated; F16.10 Hallucinogen abuse, uncomplicated; Z79.899 Other long term (current) drug therapy; Y92.89 Other specified places as the place of occurrence of the external cause
CPT/HCPCS: 36415; 70450; 71045; 80053; 80307; 81001; 82140; 82550; 82962; 83735; 84443; 85027; 85610; 85730; 93005; 93010; 96365; 96372; 99285; J1630; J1953; J2060; J7030; 80320; G0480